=== PATIENT | female | born 1950 | race American Indian/Alaskan Native ===

== ENCOUNTER 2017-04-22 09:20 | Emergency (ER) | payer BC ==
[~2017-04-22] VITALS: Ht 162.6 cm; Wt 87.1 kg
[~2017-04-22 09:20] MED LIST: ASPI325; Ativan0.5 MG PO; Ciprodex Otic7.5 ML LEFTEAR; INSULANPEN; LEVSOD100 PO; LISI20 PO; MECL25 PO; MELA3 PO; METF500; METF500 PO; NAPR500 PO; OXYACE7.5T PO; OXYC10ER PO; PRAV20 PO; ZOLP10; ZOLP10 PO; [UNRECOGNIZED DRUG - OTHER] OP
[2017-04-22 10:37] LABS: Alanine Aminotransfer (ALT/SGP 19 U/L (12-78); Albumin, Blood 3.5 g/dL (3.4-5.0); Albumin/Globulin Ratio 0.7 (0.8-1.8); Alk Phos 65 U/L (50-136); Anion Gap 11 mmol/L (6-16); Aspartate Aminotrans (AST/SGOT 22 U/L (12-37); Bilirubin, Total 0.6 mg/dL (0.1-1.0); Blood Urea Nitrogen 12 mg/dL (8-24); Bun/Creatinine Ratio 17.9 (12.0-20.0); CO2, Blood 23 mmol/L (21-32); Calcium, Blood 9.1 mg/dL (8.5-10.1); Chloride, Blood 107 mmol/L (98-108); Creatinine, Blood 0.67 mg/dL (0.40-1.00); Globulin, Blood 4.9 g/dL (2.2-4.0); Glomerular Filtration Rate >60 (60-); Glucose, Blood 121 mg/dL (70-99); Potassium, Blood 4.3 mmol/L (3.5-5.5); Sodium, Blood 141 mmol/L (136-145); Total Protein, Blood 8.4 g/dL (6.4-8.2)
[2017-04-22 11:44] LABS: BASOPHILS ABSOLUTE AUTO 0.04 K/mm3 (0.00-0.23); BASOPHILS PERCENT AUTO 1 % (0-2); EOSINOPHILS ABSOLUTE AUTO 0.26 K/mm3 (0.00-0.68); EOSINOPHILS PERCENT AUTO 3 % (0-6); Hematocrit 41.7 % (33.0-51.0); Hemoglobin 13.4 g/dL (11.5-16.0); IMMATURE GRAN ABSOLUTE AUTO 0.02 K/mm3 (0.00-0.10); IMMATURE GRAN PERCENT AUTO 0 % (0-1); LYMPHOCYTES ABSOLUTE AUTO 1.48 K/mm3 (0.84-5.20); LYMPHOCYTES PERCENT AUTO 18 % (21-46); MONOCYTES ABSOLUTE AUTO 0.54 K/mm3 (0.16-1.47); MONOCYTES PERCENT AUTO 7 % (4-13); Mean Corpuscular HGB 30.2 pg (26.0-34.0); Mean Corpuscular HGB Conc 32.1 g/dL (31.5-36.5); Mean Corpuscular Volume 94 fL (80-100); NEUTROPHILS ABSOLUTE AUTO 5.92 K/mm3 (1.96-9.15); NEUTROPHILS PERCENT AUTO 72 % (41-73); Platelet Count 201 K/mm3 (150-400); RDW Coefficient Variation 13.4 % (11.7-14.2); RDW Standard Deviation 46.2 fL (35.1-46.3); Red Blood Cell Count 4.44 M/mm3 (3.80-5.20); White Blood Cell Count 8.26 K/mm3 (4.00-11.30)
[2017-04-22] MEDS ORDERED: OMEPRAZOLE MAGN20 MG PO (12:00)
== END 2017-04-22 12:14 | disposition home or self-care (01) ==
LOC: ER 09:20
PROVIDERS: Physician Assistant
DX: R10.9 Unspecified abdominal pain (principal); R10.816 Epigastric abdominal tenderness; E11.9 Type 2 diabetes mellitus without complications; I10 Essential (primary) hypertension; E03.9 Hypothyroidism, unspecified; I25.2 Old myocardial infarction; I70.90 Unspecified atherosclerosis; F17.200 Nicotine dependence, unspecified, uncomplicated; Z79.4 Long term (current) use of insulin; Z79.891 Long term (current) use of opiate analgesic; Z79.899 Other long term (current) drug therapy; Z79.2 Long term (current) use of antibiotics
CPT/HCPCS: 36415; 80053; 83690; 85025; 93005; 93010; 96361; 96374; 99283; J3490; J7030

== ENCOUNTER 2017-07-14 06:39 | Day surgery (SDC) | payer BC ==
[~2017-07-14] VITALS: Ht 162.6 cm; Wt 80.5 kg
[~2017-07-14 06:39] MED LIST changes: +OMEPRAZOLE MAGN20 MG PO
== END 2017-07-14 09:05 | disposition home or self-care (01) ==
LOC: ORSCSDS 06:39
PROVIDERS: Internal Medicine Gastroenterology
PROC: 0DBH8ZX Excision of Cecum, Via Natural or Artificial Opening Endoscopic, Diagnostic (ICD-10-PCS; principal; 2017-07-14 08:00)
PROC: 0DB88ZX Excision of Small Intestine, Via Natural or Artificial Opening Endoscopic, Diagnostic (ICD-10-PCS; principal; 2017-07-14 08:00)
PROC: 0DB58ZX Excision of Esophagus, Via Natural or Artificial Opening Endoscopic, Diagnostic (ICD-10-PCS; principal; 2017-07-14 08:00)
PROC: 0DB68ZX Excision of Stomach, Via Natural or Artificial Opening Endoscopic, Diagnostic (ICD-10-PCS; principal; 2017-07-14 08:00)
DX: R10.9 Unspecified abdominal pain (principal); D12.0 Benign neoplasm of cecum; R10.13 Epigastric pain; K64.8 Other hemorrhoids; K59.00 Constipation, unspecified; E11.9 Type 2 diabetes mellitus without complications; I10 Essential (primary) hypertension; K21.9 Gastro-esophageal reflux disease without esophagitis; K29.70 Gastritis, unspecified, without bleeding; R63.4 Abnormal weight loss; E78.5 Hyperlipidemia, unspecified; Z87.891 Personal history of nicotine dependence; E66.9 Obesity, unspecified; Z68.32 Body mass index [BMI] 32.0-32.9, adult; Z79.82 Long term (current) use of aspirin; Z79.84 Long term (current) use of oral hypoglycemic drugs; Z79.899 Other long term (current) drug therapy
CPT/HCPCS: 82947; 88305; 88342; J0330; J1980; J2405; J7120

== ENCOUNTER 2021-12-15 07:16 | Day surgery (SDC) | payer BC ==
[~2021-12-15] VITALS: Ht 160 cm; Wt 71.8 kg
[~2021-12-15 07:16] MED LIST changes: +ASPI81CH PO; +HYDPAM25 PO; +HYDR1TAB94 PO; +OMEP20ER PO
--- NOTE | 2021-12-15 08:34 | NUR ---
Ambulatory in Day Surgery History, Chart, Medications and Allergies reviewed before start of procedure. Lungs clear T/O to Auscultation. Pre-Op teaching done. Pt verbalizes understanding. Patient States Post-Procedure ride home has been arranged.
--- NOTE | 2021-12-15 09:03 | NUR ---
PATIENTS BLOOD SUGAR ON ADMIT IN SDS 62. INFORMED DR SCOTT ANESTHESIOLOGIST. NEW ORDERS TO GIVEN D5NS 250CC BOLUS THEN RECHECK CBG; IVF'S STARTED.
--- NOTE | 2021-12-15 09:33 | NUR ---
RECHECKED BLOOD SUGAR AFTER 500CC D5NS BOLUS PER ORDERS. CBG [address] SCOTT AND OR STAFF.
--- NOTE | 2021-12-15 10:38 | NUR ---
12/15/21 1038 Edwar Castrejon PTS BLOOD SUGAR CHECKED IN OR AT 1020, CBG WAS 104.
--- NOTE | 2021-12-15 12:34 | NUR ---
Discharge instructions reviewed with patient. Patient verbalizes understanding. Copy given to patient to take home. Dressing to procedure site clean, dry, intact with no visible drainage, swelling, erythema or bruising noted.
--- NOTE | 2021-12-15 12:49 | NUR ---
Discharged via wheelchair to private car for ride home.
[2021-12-16] MEDS ORDERED: TRESIBA100 UNIT/2 SC (09:10)
== END 2021-12-15 12:51 | disposition home or self-care (01) ==
LOC: ORSCMMR 07:16 → ORD 09:00 → ORSCMMR 12:51
PROVIDERS: Surgery
PROC: BF532Z0 Other Imaging of Gallbladder and Bile Ducts using Fluorescing Agent, Intraoperative (ICD-10-PCS; principal; 2021-12-15 09:00)
PROC: 0FT44ZZ Resection of Gallbladder, Percutaneous Endoscopic Approach (ICD-10-PCS; principal; 2021-12-15 09:00)
DX: K80.12 Calculus of gallbladder with acute and chronic cholecystitis without obstruction (principal); I10 Essential (primary) hypertension; I25.10 Atherosclerotic heart disease of native coronary artery without angina pectoris; I25.2 Old myocardial infarction; E11.9 Type 2 diabetes mellitus without complications; E03.9 Hypothyroidism, unspecified; Z79.4 Long term (current) use of insulin; Z79.899 Other long term (current) drug therapy
CPT/HCPCS: 74300; 82947; 88304; A9270; C1894; J0694; J1100; J2250; J2370; J2405; J2704; J2795; J3010; J7042; J7120

== ENCOUNTER 2021-12-16 03:56 | Inpatient (IN) | payer BC ==
[~2021-12-16] VITALS: Ht 160 cm; Wt 71.9 kg
[2021-12-16 04:50] LABS: Calcium, Ionized (POC) 1.25 mmol/L (1.10-1.46); Chloride (POC) 104 mmol/L (98-108); Creatinine (POC) 0.6 mg/dL (0.6-1.0); Glucose (ISTAT POC) 258 mg/dL (70-99); Hemoglobin (POC) 15.3 g/dL (12.0-16.0); Potassium (POC) 4.1 mmol/L (3.5-5.5); Sodium (POC) 142 mmol/L (135-148); Total CO2 (POC) 25 mmol/L (21-32)
[2021-12-16 04:55] LABS: Alanine Aminotransfer (ALT/SGP 48 U/L (12-78); Albumin, Blood 3.9 g/dL (3.4-5.0); Albumin/Globulin Ratio 0.7 (0.8-1.8); Alk Phos 79 U/L (50-136); Anion Gap 7 mmol/L (6-16); Aspartate Aminotrans (AST/SGOT 63 U/L (12-37); Blood Urea Nitrogen 13 mg/dL (8-24); Bun/Creatinine Ratio 18.8 (12.0-20.0); CO2, Blood 26 mmol/L (21-32); Calcium, Blood 9.7 mg/dL (8.5-10.1); Chloride, Blood 105 mmol/L (98-108); Creatinine, Blood 0.69 mg/dL (0.40-1.00); Globulin, Blood 5.3 g/dL (2.2-4.0); Glomerular Filtration Rate 92 (60-); Glucose, Blood 255 mg/dL (70-99); Potassium, Blood 4.1 mmol/L (3.5-5.5); Sodium, Blood 138 mmol/L (136-145); Total Protein, Blood 9.2 g/dL (6.4-8.2)
[2021-12-16 04:57] LABS: BASOPHILS ABSOLUTE AUTO 0.06 K/mm3 (0.00-0.23); BASOPHILS PERCENT AUTO 0 % (0-2); EOSINOPHILS ABSOLUTE AUTO 0.03 K/mm3 (0.00-0.68); EOSINOPHILS PERCENT AUTO 0 % (0-6); Hematocrit 46.8 % (33.0-51.0); Hemoglobin 15.4 g/dL (11.5-16.0); IMMATURE GRAN PERCENT AUTO 1 % (0-1); LYMPHOCYTES ABSOLUTE AUTO 2.06 K/mm3 (0.84-5.20); LYMPHOCYTES PERCENT AUTO 9 % (21-46); MONOCYTES ABSOLUTE AUTO 1.18 K/mm3 (0.16-1.47); MONOCYTES PERCENT AUTO 5 % (4-13); Mean Corpuscular HGB 30.6 pg (26.0-34.0); Mean Corpuscular HGB Conc 32.9 g/dL (31.5-36.5); Mean Corpuscular Volume 93 fL (80-100); Mean Platelet Volume 11.8 fL (9.1-12.4); NEUTROPHILS ABSOLUTE AUTO 18.66 K/mm3 (1.96-9.15); NEUTROPHILS PERCENT AUTO 84 % (41-73); Platelet Count 196 K/mm3 (150-400); RDW Coefficient Variation 13.2 % (11.7-14.2); Red Blood Cell Count 5.03 M/mm3 (3.80-5.20); White Blood Cell Count 22.19 K/mm3 (4.00-11.30)
[2021-12-16 05:21] LABS: International Normalized Ratio 1.05
[2021-12-16 05:30] LABS: Influenza A, PCR NEGATIVE (NEGATIVE); Influenza B, PCR NEGATIVE (NEGATIVE); Resp Syncytial Virus, PCR NEGATIVE (NEGATIVE); SARS-Cov-2 (COVID-19) PCR, MMC NEGATIVE (NEGATIVE)
[2021-12-16 05:39] LABS: CHOL/HDL RATIO 2.3; Cholesterol 159 mg/dL (50-200); HDL Cholesterol 68 mg/dL (>39); LDL/HDL RATIO 1.2; Low Density Lipoprotein Chol 78 mg/dL (0-110); Magnesium, Blood 1.7 mg/dL (1.6-2.4); Triglycerides 63 mg/dL (30-160); Very Low Density Lipoprot Chol 12 mg/dL (6-32)
--- NOTE | 2021-12-16 06:59 | NUR ---
NEW ADMISSION: PT ARRIVED TO THE UNIT AT 0636 FROM CONTAINER PACKER OPERATOR WITH ONE STENT PLACEMENT IN THE PROXIMAL CIRCUMFLEX ART. R. RADIAL SITE LOOKS GOOD WITH NO SIGNS OF BLLEDING PRESENT, WRIST BOARD IN PLACE. PT HYPERSENSIVE WITH SBP IN THE 150'S UPON ARRIVAL; RECIEVED 5 MGS METOPROLOL IN CONTAINER PACKER OPERATOR PRIOR TO TRANSFER. HR IN THE 90'S. CLEAR LUNG SOUNDS THROUGHOUT AND ON RA. PT'S DAUGHTER AND SON AT BEDSIDE AFTER SETTLING PT. GAVE BEDSIDE REPORT TO HEAVENLY DAVIS.
[2021-12-16] MEDS ORDERED: TRESIBA100 UNIT/2 SC (09:10)
--- NOTE | 2021-12-16 10:01 | NUR ---
ASSUMED CARE REPORT FROM SUNDEEP/CHRISTIAN RN AT 0700. PT ARRIVES TO ICU AT 0635 POST PCI. RIGHT RADIAL ACCESS SITE. TR BAND DEFLATED BUT IN PLACE AT THIS TIME. NO BLEEDING, SWELLING NOTED. DENIES NUMBNESS OR TINGLING. CAP REFILL <3 SEC. ARM BOARD IN PLACE. PT DENIES CHEST PAIN OR SOB. SR, RATE 70'S ON MONITOR. BP STABLE. STAND BY ASSIST TO TOLIET. TOLERATED BREAKFAST WELL. PT S/P OUTPT LAP RAOUL YEST, THREE GAUZE DRESSINGS c TEGADERM IN PLACE, NO DRAINAGE NOTED. PT DENIES PAIN TO SITE. TOLD BY SX THAT SHE CAN REMOVE THIS AFTERNOON. WILL CONTINUE TO MONITOR.
--- NOTE | 2021-12-16 17:20 | NUR ---
SHIFT SUMMARY NO ACUTE EVENTS THIS SHIFT. PT DENIES CHEST PAIN OR SOB. STANDBY ASSIST FOR CORD MANAGMENT. RIGHT RADIAL ACCESS SITE WNL. OPSITE AND ARMBOARD IN PLACE. SR c OCCASIONAL PVCS ON MONITOR. BP STABLE. DR CALLEJAS ROUNDED, REMOVED RAOUL DRESSINGS. WILL CONTINUE TO MONITOR UNTIL REPORT TO ONCOMING NURSE.
--- NOTE | 2021-12-16 20:46 | NUR ---
ASSUMPTION OF CARE: ASSUMED CARE OF PT AT 1900, RECIEVED REPORT FROM HEAVENLY DAVIS. PT IS A&O X 4 AND SITTING IN A CHAIR AT THIS TIME. PT IS PLEASANT AND ABLE TO COMPLETE ADLS WITH LIMITED STAND-BY ASSISTANCE FROM ONE PERSON TO MAINTAIN CORDS. PT HAS NO C/O OF CHEST PAIN OR SOB AT THIS TIME. PT IS ON RA WITH 02 LEVELS MAINTAINING 98<, WITH RR 18-20; LUNG SOUNDS ARE CLEAR THROUGHOUT. PT ON CONTINUOUS WAISTBAND SETTER WITH HR IN THE 70'S AND SBP 150'S. HYPERACTIVE BS IN ALL FOUR QUADRANTS, ABD TENDER NEAR INCISION SITES; OTHER THAN THAT PT HAS NO C/O OF ABD PAIN. PPP X 4, ALL EXTREMITIES WARM AND CAP REFIL < 3 SECONDS. R. RADIAL SITE LOOKS WELL WITH NO SWELLING OR TENDERNESS PRESENT; ABSENT OF BLEEDING WITH ARMBOARD IN PLACE. PLACED R. ARM ON PILLOW AND PT UNDERSTANDS NOT TO BEND OR BARE WEIGHT ON R. WRIST. PT HAS TWO IV RIGHT/LEFT AC THAT ARE SALINE LOCKED. PT RECIEVED PRN DOSE OF MELITONIN UPON REQUEST. CALL LIGHT IN REACH AND BED LOWERED. WILL CONTINUE TO MONITOR THROUGHOUT THE NIGHT.
[2021-12-17 03:16] LABS: Hematocrit 42.9 % (33.0-51.0); Hemoglobin 13.9 g/dL (11.5-16.0); Mean Corpuscular HGB 30.3 pg (26.0-34.0); Mean Corpuscular HGB Conc 32.4 g/dL (31.5-36.5); Mean Corpuscular Volume 94 fL (80-100); Mean Platelet Volume 11.3 fL (9.1-12.4); Platelet Count 232 K/mm3 (150-400); RDW Coefficient Variation 13.4 % (11.7-14.2); RDW Standard Deviation 45.5 fL (35.1-46.3); Red Blood Cell Count 4.59 M/mm3 (3.80-5.20); White Blood Cell Count 19.87 K/mm3 (4.00-11.30)
[2021-12-17 03:33] LABS: Bun/Creatinine Ratio 26.3 (12.0-20.0); Calcium, Blood 9.4 mg/dL (8.5-10.1); Creatinine, Blood 0.72 mg/dL (0.40-1.00); Potassium, Blood 3.7 mmol/L (3.5-5.5)
--- NOTE | 2021-12-17 05:50 | NUR ---
SHIFT SUMMARY: NO ACUTE CHANGES THIS SHIFT. THE PT WAS ABLE TO SLEEP COMFORTABLY THROUGH THE NIGHT. DURING 0500 EKG, PT HAD C/O OF ABD PAIN TRIGGERED BY MOVEMENT IN THE BED. PT STATED IT WAS A 3-4/10 AND WAS MEDICATED WITH NORCO PER EMAR. PT'S DAUGHTER IN THE VISIT AT 0530 AND UPDATED ON PT'S STATUS, ALL QUESTIONS ANSWERED AT THIS TIME. PT BP STABLE THROUGHOUT THE SHIFT WITH NO C/O CHEST PAIN. R. RADIAL ACCESS SITE CONTINUE TO LOOK GOOD WITH NO SWELLING OR BLEEDING PRESENT; CAP REFIL REMAINS < 3 SECONDS AND PPP X 4. WILL CONTINUE TO MONITOR UNTIL ONCOMING NURSE ARRIVES.
--- NOTE | 2021-12-17 08:15 | NUR ---
ASSUMED CARE REPORT FROM SUNDEEP/CHRISTIAN RN AT 0700. PT RESTING IN BED. WAKES c VERBAL STIMULI. A&OX 4. FOLLOWS DIRECTIONS. DENIES COMPLAINTS OR NEEDS. LUNGS CLEAR. VSS. SR ON MONITOR, RATE 80'S. BP STABLE. RIGHT RADIAL ACCESS SITE WNL. DR PHILLIP GARCIA, PLAN FOR D/C THIS SHIFT. WILL CONTINUE TO MONITOR.
[2021-12-17] MEDS ORDERED: ATOR80 PO (08:34)
[2021-12-17] MEDS ORDERED: LISI20 PO (08:34)
[2021-12-17] MEDS ORDERED: JARDIANCE25 MG PO (08:35)
[2021-12-17] MEDS ORDERED: METO25 PO (08:35)
[2021-12-17] MEDS ORDERED: TICA90TA PO (08:36)
[2021-12-17] MEDS ORDERED: NITR.4SL SL (08:36)
--- NOTE | 2021-12-17 11:26 | NUR ---
DISCHARGE NO ACUTE CHANGES. IVS REMOVED BY WARPER TENDER. RIGHT RADIAL SITE WNL. VERBALIZED UNDERSTANDING OF D/C INSTRUCTIONS. APPT MADE c PCP, [facility] TO CALL PT TO SCHEDULE APPT D/T COMPUTERS BEING DOWN. OTD c DAUGHTER.
== END 2021-12-17 11:20 | disposition home or self-care (01) | DRG 247 ==
LOC: ER 03:56 → ICUW 05:02
PROVIDERS: Student in an Organized Health Care Education/Training Program; ADMIT Internal Medicine Cardiovascular Disease
PROC: 4A023N7 Measurement of Cardiac Sampling and Pressure, Left Heart, Percutaneous Approach (ICD-10-PCS; principal; 2021-12-16)
PROC: 027034Z Dilation of Coronary Artery, One Artery with Drug-eluting Intraluminal Device, Percutaneous Approach (ICD-10-PCS; 2021-12-16)
PROC: B2111ZZ Fluoroscopy of Multiple Coronary Arteries using Low Osmolar Contrast (ICD-10-PCS; 2021-12-16)
DX: I21.19 ST elevation (STEMI) myocardial infarction involving other coronary artery of inferior wall (principal); T82.855A Stenosis of coronary artery stent, initial encounter; E11.9 Type 2 diabetes mellitus without complications; E78.5 Hyperlipidemia, unspecified; I10 Essential (primary) hypertension; I49.3 Ventricular premature depolarization; Z88.8 Allergy status to other drugs, medicaments and biological substances; D50.9 Iron deficiency anemia, unspecified; K59.00 Constipation, unspecified; E78.2 Mixed hyperlipidemia; Z20.822 Contact with and (suspected) exposure to COVID-19; E03.9 Hypothyroidism, unspecified; Z95.820 Peripheral vascular angioplasty status with implants and grafts; Z79.82 Long term (current) use of aspirin; Z79.4 Long term (current) use of insulin; Z79.899 Other long term (current) drug therapy; K80.20 Calculus of gallbladder without cholecystitis without obstruction; F17.200 Nicotine dependence, unspecified, uncomplicated; Z90.49 Acquired absence of other specified parts of digestive tract; K21.9 Gastro-esophageal reflux disease without esophagitis; I25.10 Atherosclerotic heart disease of native coronary artery without angina pectoris; D72.828 Other elevated white blood cell count; F41.9 Anxiety disorder, unspecified
CPT/HCPCS: 0241U; 36415; 71045; 76937; 80047; 80048; 80053; 80061; 82947; 83036; 83735; 84484; 85014; 85025; 85027; 85347; 85610; 93005; 93010; 93306; 93454; 96374; 99152; 99153; 99285-25; A9270; C1725; C1769; C1874; C1887; C1894; C9600; C9606; J1644; J1815; J2250; J3010; J7030; J7040; J7050; Q9967

== ENCOUNTER 2021-12-31 10:33 | Emergency (ER) | payer MEDICARE, BC ==
[~2021-12-31] VITALS: Ht 160 cm; Wt 63.5 kg
[~2021-12-31 10:33] MED LIST changes: -ASPI81CH PO; +ASPIR 8181 M1 PO; +ATOR80 PO; -HYDPAM25 PO; -HYDR1TAB94 PO; +JARDIANCE25 MG PO; +LEVSOD75 PO; +METO25 PO; +TICA90TA PO; +TRESIBA100 UNIT/2 SC
[2021-12-31 11:39] LABS: BASOPHILS ABSOLUTE AUTO 0.11 K/mm3 (0.00-0.23); BASOPHILS PERCENT AUTO 1 % (0-2); EOSINOPHILS PERCENT AUTO 1 % (0-6); Hematocrit 47.1 % (33.0-51.0); Hemoglobin 15.5 g/dL (11.5-16.0); IMMATURE GRAN PERCENT AUTO 1 % (0-1); LYMPHOCYTES ABSOLUTE AUTO 1.97 K/mm3 (0.84-5.20); LYMPHOCYTES PERCENT AUTO 10 % (21-46); MONOCYTES PERCENT AUTO 7 % (4-13); Mean Corpuscular HGB 30.6 pg (26.0-34.0); Mean Corpuscular HGB Conc 32.9 g/dL (31.5-36.5); Mean Corpuscular Volume 93 fL (80-100); Mean Platelet Volume 11.6 fL (9.1-12.4); NEUTROPHILS ABSOLUTE AUTO 15.41 K/mm3 (1.96-9.15); NEUTROPHILS PERCENT AUTO 81 % (41-73); Platelet Count 310 K/mm3 (150-400); RDW Coefficient Variation 12.9 % (11.7-14.2); RDW Standard Deviation 43.5 fL (35.1-46.3); Red Blood Cell Count 5.07 M/mm3 (3.80-5.20); White Blood Cell Count 18.99 K/mm3 (4.00-11.30)
[2021-12-31 12:06] LABS: Albumin, Blood 3.2 g/dL (3.4-5.0); Albumin/Globulin Ratio 0.6 (0.8-1.8); Bilirubin, Total 1.3 mg/dL (0.1-1.0); Creatinine, Blood 0.63 mg/dL (0.40-1.00); Globulin, Blood 5.2 g/dL (2.2-4.0); Potassium, Blood 4.6 mmol/L (3.5-5.5); Total Protein, Blood 8.4 g/dL (6.4-8.2)
[2021-12-31] MEDS ORDERED: Protonix40 MG PO (16:09)
== END 2021-12-31 16:28 | disposition home or self-care (01) ==
LOC: ER 10:33
PROVIDERS: Physician Assistant
DX: K29.70 Gastritis, unspecified, without bleeding (principal); I10 Essential (primary) hypertension; E11.9 Type 2 diabetes mellitus without complications; E03.9 Hypothyroidism, unspecified; I25.10 Atherosclerotic heart disease of native coronary artery without angina pectoris; I25.2 Old myocardial infarction; Z88.8 Allergy status to other drugs, medicaments and biological substances; Z79.899 Other long term (current) drug therapy; Z79.4 Long term (current) use of insulin; Z79.82 Long term (current) use of aspirin
CPT/HCPCS: 80053; 82947; 83605; 83690; 84484; 85025; 96374; 99284-25; A9270; C9113; J7030

== ENCOUNTER 2022-01-05 10:44 | Inpatient (IN) | payer BC ==
[~2022-01-05] VITALS: Ht 162.6 cm; Wt 65.5 kg
[~2022-01-05 10:44] MED LIST changes: +Protonix40 MG PO
[2022-01-05 11:03] LABS: Source, Urine Clean Catch
[2022-01-05 11:05] LABS: Appearance, Urine Clear (Clear); Blood, Urine Neg (Neg); Color, Urine Yellow (P-Yellow); Glucose Qualitative, Urine Neg (Neg); Ketones, Urine 1+ (Neg); Leukocyte Esterase, Urine 1+ (Neg); Nitrite, Urine Neg (Neg); Protein, Urine 2+ (Neg); Urobilinogen, Urine 1+ (Normal); pH, Urine 6.5 (5.0-8.0)
[2022-01-05 11:18] LABS: BASOPHILS PERCENT AUTO 1 % (0-2); EOSINOPHILS ABSOLUTE AUTO 0.21 K/mm3 (0.00-0.68); EOSINOPHILS PERCENT AUTO 1 % (0-6); Hematocrit 42.5 % (33.0-51.0); Hemoglobin 14.2 g/dL (11.5-16.0); IMMATURE GRAN ABSOLUTE AUTO 0.08 K/mm3 (0.00-0.10); IMMATURE GRAN PERCENT AUTO 0 % (0-1); LYMPHOCYTES ABSOLUTE AUTO 1.53 K/mm3 (0.84-5.20); LYMPHOCYTES PERCENT AUTO 8 % (21-46); MONOCYTES ABSOLUTE AUTO 1.65 K/mm3 (0.16-1.47); MONOCYTES PERCENT AUTO 8 % (4-13); Mean Corpuscular HGB 30.5 pg (26.0-34.0); Mean Corpuscular HGB Conc 33.4 g/dL (31.5-36.5); Mean Corpuscular Volume 91 fL (80-100); Mean Platelet Volume 10.9 fL (9.1-12.4); NEUTROPHILS ABSOLUTE AUTO 16.28 K/mm3 (1.96-9.15); NEUTROPHILS PERCENT AUTO 82 % (41-73); Platelet Count 351 K/mm3 (150-400); RDW Coefficient Variation 12.8 % (11.7-14.2); RDW Standard Deviation 43.1 fL (35.1-46.3); Red Blood Cell Count 4.65 M/mm3 (3.80-5.20); White Blood Cell Count 19.85 K/mm3 (4.00-11.30)
[2022-01-05 11:22] LABS: Bilirubin, Urine 1+ (Neg)
[2022-01-05 11:23] LABS: Bacteria Few /hpf; Red Blood Cells, Urine 0-2 /hpf (0-2); Squamous Epithelial Cells Few /hpf (Few); Transitional Epithelial Cells Few /hpf (0-Rare)
[2022-01-05] MEDS ORDERED: TRESIBA FL200 UNIT/2 SQ (11:24)
[2022-01-05 11:38] LABS: Albumin, Blood 2.8 g/dL (3.4-5.0); Albumin/Globulin Ratio 0.5 (0.8-1.8); Bilirubin, Total 1.3 mg/dL (0.1-1.0); Bun/Creatinine Ratio 15.3 (12.0-20.0); Calcium, Blood 9.7 mg/dL (8.5-10.1); Creatinine, Blood 0.59 mg/dL (0.40-1.00); Globulin, Blood 5.3 g/dL (2.2-4.0); Potassium, Blood 3.8 mmol/L (3.5-5.5); Total Protein, Blood 8.1 g/dL (6.4-8.2)
[2022-01-05] MEDS ORDERED: LISI20 PO (15:18)
--- NOTE | 2022-01-05 17:02 | NUR ---
SHIFT SUMMARY MS CASTRO ARRIVED TO MEDICAL UNIT FROM ER AT 1505 HRS. SHE IS ON ROOM AIR, WAS ABLE TO TRANSFERE INDEPENDENTLY AND WALKED INTO THE BATHROOM WITH STEADY GAIT, NO DIZZYNESS/LIGHTHEADEDNESS. NO SOB. NO CP. SHE WAS ADMITTED WITH ABDOMINAL PAIN, BUT HAS NOT HAD ANY ABDOMINAL PAIN SINCE ARRIVAL. ABDOMEN SOFT, BOWEL SOUNDS ACTIVE. NO BM X 5 DAYS. PT C/O RECENT WEIGHT LOSS AROUND 14LBS DUE TO NAUSEA. NO NAUSEA ON ARRIVAL OR SINCE. IVF INFUSING NS AT 100CC/HR. SIPPING ON SOME WATER. DAUGHTER HAS VISITED WITH HER. PT LIVES WITH HER DAUGHTER AND SAID SHE IS INDEPENDENT AT HOME. SHE SAID THAT SHE IS TAKING HALF OF HER HOME LISINOPRIL DOSE DUE TO SBP [address] DEMPSEY INFORMED AND LISINOPRIL DOSE CHANGED TO 20MG PO QD. BED LOW, CALL LIGHT IN REACH.
[2022-01-05] MEDS ORDERED: HYDR1TAB94 PO (18:07)
[2022-01-05] MEDS ORDERED: HYDPAM25 PO (18:08)
[2022-01-05] MEDS ORDERED: NITR.4SL SL (18:08)
--- NOTE | 2022-01-06 04:51 | NUR ---
SHIFT SUMMARY PT A&OX 4- PT DENIED PAIN T/O NIGHT- IV FLUIDS AND ABX INFUSED T/O NIGHT- PT ABLE TO EAT SNACK WITH MILD NAUSEA- MEDICATED X1 WITH ZOFRAN- PT AMBULATES IND TO BR
[2022-01-06 05:52] LABS: BASOPHILS ABSOLUTE AUTO 0.08 K/mm3 (0.00-0.23); BASOPHILS PERCENT AUTO 1 % (0-2); EOSINOPHILS PERCENT AUTO 2 % (0-6); Hematocrit 37.4 % (33.0-51.0); Hemoglobin 12.5 g/dL (11.5-16.0); IMMATURE GRAN ABSOLUTE AUTO 0.08 K/mm3 (0.00-0.10); IMMATURE GRAN PERCENT AUTO 1 % (0-1); LYMPHOCYTES ABSOLUTE AUTO 1.85 K/mm3 (0.84-5.20); LYMPHOCYTES PERCENT AUTO 11 % (21-46); MONOCYTES ABSOLUTE AUTO 1.86 K/mm3 (0.16-1.47); MONOCYTES PERCENT AUTO 11 % (4-13); Mean Corpuscular HGB 30.6 pg (26.0-34.0); Mean Corpuscular HGB Conc 33.4 g/dL (31.5-36.5); Mean Corpuscular Volume 91 fL (80-100); NEUTROPHILS ABSOLUTE AUTO 12.97 K/mm3 (1.96-9.15); NEUTROPHILS PERCENT AUTO 75 % (41-73); Platelet Count 279 K/mm3 (150-400); RDW Coefficient Variation 12.7 % (11.7-14.2); RDW Standard Deviation 42.5 fL (35.1-46.3); Red Blood Cell Count 4.09 M/mm3 (3.80-5.20); White Blood Cell Count 17.24 K/mm3 (4.00-11.30)
[2022-01-06 06:22] LABS: Bun/Creatinine Ratio 13.8 (12.0-20.0); Creatinine, Blood 0.58 mg/dL (0.40-1.00); Potassium, Blood 3.6 mmol/L (3.5-5.5)
[2022-01-06 08:39] LABS: Bilirubin, Direct 0.3 mg/dL (0.0-0.3); Bilirubin, Indirect 0.8 mg/dL (0.1-0.7); Bilirubin, Total 1.1 mg/dL (0.1-1.0)
--- NOTE | 2022-01-06 17:26 | NUR ---
SHIFT SUMMARY PATIENT MEDICATED FOR PAIN X3, NAUSEA X1, PATIENT DENIES SHORTNESS OF BREATH. PATIENT IS IND IN ROOM. PATIENT HAS NS RUNNING AT 100MLS/HR. PATIENT SBP LOW, NOTIFIED, BP MEDS ADJUSTED. NEW ORDERS FOR ORTHOSTATIC VS, COMPLETED AND DR. GALVEZ NOTIFIED. PATIENT DENIES CHEST PAIN, DIZZINESS, AND LIGHTHEADEDNESS WITH LOW SBP. PATIENT HAD HIDA SCAN TODAY, SEE RESULTS. PATIENT HAD MINIMAL PO INTAKE, MAKES HER NAUSEOUS. DR. NEVILLE TO SEE PATIENT TODAY, SEE NOTE. PATIENT IS PLEASANT AND COOPERATIVE WITH CARE.
--- NOTE | 2022-01-06 17:58 | NUR ---
FINANCIAL RECORDING CLERK DOCUMENTATION THIS RN AGREES WITH THE STUDENT SHIFT ASSESSMENT AND WAS PRESENT DURING ASSESSMENT. THIS RN ANSWERED ANY QUESTIONS STUDENT HAD. THIS RN HELPED STUDENT CHART THE SHIFT ASSESSMENT AND AGREES WITH WHAT IS CHARTED.
[2022-01-07 05:10] LABS: BASOPHILS ABSOLUTE AUTO 0.07 K/mm3 (0.00-0.23); BASOPHILS PERCENT AUTO 1 % (0-2); EOSINOPHILS ABSOLUTE AUTO 0.54 K/mm3 (0.00-0.68); EOSINOPHILS PERCENT AUTO 4 % (0-6); Hematocrit 36.1 % (33.0-51.0); Hemoglobin 12.2 g/dL (11.5-16.0); IMMATURE GRAN ABSOLUTE AUTO 0.06 K/mm3 (0.00-0.10); IMMATURE GRAN PERCENT AUTO 0 % (0-1); LYMPHOCYTES PERCENT AUTO 15 % (21-46); MONOCYTES PERCENT AUTO 10 % (4-13); Mean Corpuscular HGB 30.8 pg (26.0-34.0); Mean Corpuscular HGB Conc 33.8 g/dL (31.5-36.5); Mean Corpuscular Volume 91 fL (80-100); Mean Platelet Volume 10.9 fL (9.1-12.4); NEUTROPHILS ABSOLUTE AUTO 9.77 K/mm3 (1.96-9.15); NEUTROPHILS PERCENT AUTO 70 % (41-73); Platelet Count 291 K/mm3 (150-400); RDW Coefficient Variation 12.6 % (11.7-14.2); RDW Standard Deviation 42.1 fL (35.1-46.3); Red Blood Cell Count 3.96 M/mm3 (3.80-5.20); White Blood Cell Count 13.94 K/mm3 (4.00-11.30)
[2022-01-07 05:31] LABS: Albumin, Blood 2.2 g/dL (3.4-5.0); Albumin/Globulin Ratio 0.5 (0.8-1.8); Calcium, Blood 8.9 mg/dL (8.5-10.1); Creatinine, Blood 0.54 mg/dL (0.40-1.00); Globulin, Blood 4.4 g/dL (2.2-4.0); Potassium, Blood 3.2 mmol/L (3.5-5.5); Total Protein, Blood 6.6 g/dL (6.4-8.2)
--- NOTE | 2022-01-07 06:28 | NUR ---
SHIFT SUMMARY MEDICATED PT WITH PAIN MEDICATION ONCE THROUGHOUT THE NIGHT- NEW ORDER FOR MELATONIN GIVEN - PT SLEPT T/O NIGHT- IV INFUSING WITHOUT PROBLEMS
[2022-01-07] MEDS ORDERED: Acetaminophen650 M1 PO (11:37)
[2022-01-07] MEDS ORDERED: AMOCLA875 PO (11:38)
[2022-01-07] MEDS ORDERED: VISBIOME 112.51 EACH PO (11:38)
--- NOTE | 2022-01-07 14:24 | NUR ---
DISCHARGE PATIENT TRANSPORTED VIA WHEELCHAIR TO PRIVATE VEHCILE. DISCHARGE INSTRUCTIONS EXPLAINED TO PATIENT. PATIENT STATED UNDERSTANDING. PACKET SENT WITH PATIENT. BELONGINGS SENT WITH PATIENT. IV REMOVED WITHOUT DIFFICULTY. PATIENT TO SCHEDULE FOLLOW UP APPOINTMENTS. MEDICATIONS CALLED INTO [facility] DUE TO THEIR FAX MACHINE BEING DOWN. CONFIRMATION OF VERBAL ORDERS GIVEN. EDUCATION ABOUT NEW MEDICATIONS AND CHANGE IN MEDICATIONS DONE WITH PATIENT.
== END 2022-01-07 14:27 | disposition home or self-care (01) | DRG 920 ==
LOC: ER 10:44 → MEDS 13:48
PROVIDERS: Emergency Medicine; Internal Medicine; Nurse Practitioner Acute Care; Surgery; ADMIT Hospitalist
DX: K91.872 Postprocedural seroma of a digestive system organ or structure following a digestive system procedure (principal); R65.10 Systemic inflammatory response syndrome (SIRS) of non-infectious origin without acute organ dysfunction; I10 Essential (primary) hypertension; E03.9 Hypothyroidism, unspecified; E78.5 Hyperlipidemia, unspecified; K29.70 Gastritis, unspecified, without bleeding; I25.10 Atherosclerotic heart disease of native coronary artery without angina pectoris; K21.9 Gastro-esophageal reflux disease without esophagitis; I25.2 Old myocardial infarction; Z90.49 Acquired absence of other specified parts of digestive tract; Z95.5 Presence of coronary angioplasty implant and graft; Z87.891 Personal history of nicotine dependence; Z88.8 Allergy status to other drugs, medicaments and biological substances; Z79.4 Long term (current) use of insulin; Z79.82 Long term (current) use of aspirin; Z79.899 Other long term (current) drug therapy; Y83.6 Removal of other organ (partial) (total) as the cause of abnormal reaction of the patient, or of later complication, without mention of misadventure at the time of the procedure
CPT/HCPCS: 36415; 74177; 78226; 80048; 80053; 81001; 82247; 82248; 82947; 82977; 83605; 83690; 84145; 85025; 87040; 87086; 93005; 93010; 96361; 96365; 97110; 97161; 97165; 99285-25; A9270; A9537; J2405; J2543; J3010; J7030; Q9967

== ENCOUNTER 2022-02-03 16:45 | Emergency (ER) | payer BC ==
[~2022-02-03] VITALS: Ht 162.6 cm; Wt 59.4 kg
[~2022-02-03 16:45] MED LIST changes: +AMOCLA875 PO; +ASPI81CH PO; +Acetaminophen650 M1 PO; +FAMO20 PO; +HYDPAM25 PO; +HYDR1TAB94 PO; +NITR.4SL SL; +ONDA4ODT MM; +PANT40 PO; +TRESIBA FL200 UNIT/2 SQ; +VISBIOME 112.51 EACH PO
[2022-02-03 18:47] LABS: BASOPHILS PERCENT AUTO 1 % (0-2); EOSINOPHILS PERCENT AUTO 0 % (0-6); Hematocrit 48.8 % (33.0-51.0); Hemoglobin 15.8 g/dL (11.5-16.0); IMMATURE GRAN ABSOLUTE AUTO 0.09 K/mm3 (0.00-0.10); IMMATURE GRAN PERCENT AUTO 0 % (0-1); LYMPHOCYTES PERCENT AUTO 8 % (21-46); MONOCYTES ABSOLUTE AUTO 1.77 K/mm3 (0.16-1.47); MONOCYTES PERCENT AUTO 8 % (4-13); Mean Corpuscular HGB 30.3 pg (26.0-34.0); Mean Corpuscular HGB Conc 32.4 g/dL (31.5-36.5); Mean Corpuscular Volume 94 fL (80-100); Mean Platelet Volume 10.8 fL (9.1-12.4); NEUTROPHILS PERCENT AUTO 83 % (41-73); Platelet Count 398 K/mm3 (150-400); RDW Coefficient Variation 13.7 % (11.7-14.2); RDW Standard Deviation 46.8 fL (35.1-46.3); Red Blood Cell Count 5.22 M/mm3 (3.80-5.20); White Blood Cell Count 22.16 K/mm3 (4.00-11.30)
[2022-02-03 19:04] LABS: Albumin, Blood 2.6 g/dL (3.4-5.0); Albumin/Globulin Ratio 0.5 (0.8-1.8); Bilirubin, Total 1.4 mg/dL (0.1-1.0); Bun/Creatinine Ratio 34.2 (12.0-20.0); Calcium, Blood 9.1 mg/dL (8.5-10.1); Creatinine, Blood 0.35 mg/dL (0.40-1.00); Globulin, Blood 5.5 g/dL (2.2-4.0); Potassium, Blood 5.1 mmol/L (3.5-5.5); Total Protein, Blood 8.1 g/dL (6.4-8.2)
[2022-02-03 19:28] LABS: Source, Urine Clean Catch
[2022-02-03 19:35] LABS: Appearance, Urine Hazy (Clear); Blood, Urine 1+ (Neg); Color, Urine Yellow (P-Yellow); Glucose Qualitative, Urine Neg (Neg); Ketones, Urine Neg (Neg); Leukocyte Esterase, Urine 2+ (Neg); Nitrite, Urine Neg (Neg); Protein, Urine 2+ (Neg); Urobilinogen, Urine NORM (Normal)
[2022-02-03 19:41] LABS: Bilirubin, Urine 1+ (Neg)
[2022-02-03 19:42] LABS: Bacteria Many /hpf; Squamous Epithelial Cells Few /hpf (Few)
[2022-02-03 19:43] LABS: Hyaline Casts 0-2 /lpf (0-2); Mucus Mod (0-Heavy)
[2022-02-03] MEDS ORDERED: METR500 PO (23:47)
[2022-02-03] MEDS ORDERED: AMOCLA875 PO (23:47)
== END 2022-02-03 23:48 ==
LOC: ER 16:45
PROVIDERS: Physician Assistant
DX: K52.9 Noninfective gastroenteritis and colitis, unspecified (principal); D72.829 Elevated white blood cell count, unspecified; I10 Essential (primary) hypertension; E11.9 Type 2 diabetes mellitus without complications; E03.9 Hypothyroidism, unspecified; I25.10 Atherosclerotic heart disease of native coronary artery without angina pectoris; I25.2 Old myocardial infarction; Z88.8 Allergy status to other drugs, medicaments and biological substances; Z79.899 Other long term (current) drug therapy; Z79.4 Long term (current) use of insulin; Z79.82 Long term (current) use of aspirin; Z87.891 Personal history of nicotine dependence
CPT/HCPCS: 36415; 74176; 80053; 81001; 83605; 83690; 85025; 87077; 87086; 87186; A9270; J2405; J3010; J7030

== ENCOUNTER 2022-02-07 12:07 | Day surgery (SDC) | payer BC ==
[~2022-02-07] VITALS: Ht 162.6 cm; Wt 58.8 kg
[~2022-02-07 12:07] MED LIST changes: +METR500 PO
[2022-02-07] MEDS ORDERED: OMEP20ER (13:37)
[2022-02-07] MEDS ORDERED: LISI20 (13:37)
[2022-02-07] MEDS ORDERED: MIRALAX17 GM (13:37)
--- NOTE | 2022-02-07 13:55 | NUR ---
02/07/22 1355 Kim Ruvalcaba ATTEMPTS AT IV. FIRST ATTEMPT BY RN IN R AHND INFILTRATED. SECOND ATTEMPT BY RN IN L AC SUCESSFUL
--- NOTE | 2022-02-07 14:38 | NUR ---
02/07/22 1438 KELLEN SHAH PTS IV NEEDED TO BE RETRACTED AND RETAPED;POSITIONAL FOR PATENCY.
--- NOTE | 2022-02-07 15:29 | NUR ---
02/07/22 1529 KELLEN SHAH PT HAD A TOTAL OF 1400 LR FLUIDS
== END 2022-02-07 15:44 | disposition home or self-care (01) ==
LOC: ORSCSDS 12:07
DX: R19.4 Change in bowel habit (principal); R19.7 Diarrhea, unspecified; R10.9 Unspecified abdominal pain; R11.0 Nausea; R10.13 Epigastric pain; K29.70 Gastritis, unspecified, without bleeding; I10 Essential (primary) hypertension; E03.9 Hypothyroidism, unspecified; D50.9 Iron deficiency anemia, unspecified; E78.5 Hyperlipidemia, unspecified; E11.9 Type 2 diabetes mellitus without complications; Z79.899 Other long term (current) drug therapy; Z79.82 Long term (current) use of aspirin; Z79.4 Long term (current) use of insulin
CPT/HCPCS: 82947; A9270; J0330; J0461; J2370; J2405; J2704; J7120; Q9968

== ENCOUNTER 2022-04-13 08:37 | Day surgery (SDC) | payer BC ==
[~2022-04-13] VITALS: Ht 162.6 cm; Wt 58.0 kg
[~2022-04-13 08:37] MED LIST changes: +EUTHYROX88 MCG; -LEVSOD75 PO; +LISI20; +MIRALAX17 GM; +OMEP20ER
[2022-04-13] MEDS ORDERED: OXYC5 (09:32)
--- NOTE | 2022-04-13 15:00 | NUR ---
PT DRESSES SELF WITHOUT DIFF. IV DC'D. CATH INTACT. PRESSURE DSG APPLIED. NO BLEEDING NOTED. VSS. NADN. PT FEMORAL SITE REMAINS CLEAR. NO BLEEDIG OR HEMATOMA NOTED. PT VERBALIZES UNDERSTANDING WRITTEN AND VERBAL INSTRUCTIONS. DENIES QUESTIONS. PT DC TO HOME VIA WC BY FAMILY.
== END 2022-04-13 15:05 | disposition home or self-care (01) ==
LOC: MHTC 08:37
DX: K55.1 Chronic vascular disorders of intestine (principal); I10 Essential (primary) hypertension; E78.5 Hyperlipidemia, unspecified; E11.9 Type 2 diabetes mellitus without complications; I25.10 Atherosclerotic heart disease of native coronary artery without angina pectoris; I25.2 Old myocardial infarction; Z87.891 Personal history of nicotine dependence; Z79.82 Long term (current) use of aspirin; Z79.4 Long term (current) use of insulin; E03.9 Hypothyroidism, unspecified
CPT/HCPCS: 37221; 37236; 37237; 75726; 76937; 82947; 99152; 99153; C1725; C1760; C1769; C1876; C1887; C1894; J1644; J2250; J2997; J3010; J7030; J7050; Q9967

== ENCOUNTER 2023-12-11 05:32 | Inpatient (IN) | payer MEDICARE, BC ==
[~2023-12-11] VITALS: Ht 160 cm; Wt 81.1 kg
[2023-12-11] VITALS (32 sets, daily range): BP systolic 82–153; BP diastolic 66–124
[~2023-12-11 05:32] MED LIST changes: -ATOR80 PO; -EUTHYROX88 MCG; +LIPITOR80 MG PO; +Nitroglycerin/D5W 250 ML IV ONE; +OXYC10TA19 PO
[2023-12-11] MEDS ORDERED: Nitroglycerin/D5W 250 ML IV SCH (05:40)
[2023-12-11 05:43] LABS: BASOPHILS ABSOLUTE AUTO 0.11 K/mm3 (0.00-0.23); BASOPHILS PERCENT AUTO 1 % (0-2); EOSINOPHILS ABSOLUTE AUTO 1.02 K/mm3 (0.00-0.68); EOSINOPHILS PERCENT AUTO 7 % (0-6); Hematocrit 51.6 % (33.0-51.0); Hemoglobin 16.6 g/dL (11.5-16.0); IMMATURE GRAN ABSOLUTE AUTO 0.06 K/mm3 (0.00-0.10); IMMATURE GRAN PERCENT AUTO 0 % (0-1); LYMPHOCYTES ABSOLUTE AUTO 5.17 K/mm3 (0.84-5.20); LYMPHOCYTES PERCENT AUTO 36 % (21-46); MONOCYTES ABSOLUTE AUTO 0.83 K/mm3 (0.16-1.47); MONOCYTES PERCENT AUTO 6 % (4-13); Mean Corpuscular HGB 29.5 pg (26.0-34.0); Mean Corpuscular HGB Conc 32.2 g/dL (31.5-36.5); Mean Corpuscular Volume 92 fL (80-100); Mean Platelet Volume 10.5 fL (9.1-12.4); NEUTROPHILS ABSOLUTE AUTO 7.31 K/mm3 (1.96-9.15); NEUTROPHILS PERCENT AUTO 50 % (41-73); Platelet Count 258 K/mm3 (150-400); RDW Coefficient Variation 13.6 % (11.7-14.2); RDW Standard Deviation 46.9 fL (35.1-46.3); Red Blood Cell Count 5.63 M/mm3 (3.80-5.20)
[2023-12-11 05:47] LABS: PCO2 Arterial 47.5 mmHg (35-45); PO2 Arterial 103 mmHg (80-100); pH Blood Arterial 7.26 (7.35-7.45)
[2023-12-11] MEDS ORDERED: Furosemide 10 MG/ML 4ML Vial IV ONE (05:50)
[2023-12-11 06:02] LABS: Albumin, Blood 3.1 g/dL (3.4-5.0); Albumin/Globulin Ratio 0.5 (0.8-1.8); Bilirubin, Total 1.3 mg/dL (0.1-1.0); Bun/Creatinine Ratio 21.6 (12.0-20.0); Calcium, Blood 8.8 mg/dL (8.5-10.1); Creatinine, Blood 0.6 mg/dL (0.40-1.00); Potassium, Blood 5.3 mmol/L (3.5-5.5); Total Protein, Blood 9.1 g/dL (6.4-8.2)
[2023-12-11] MEDS ORDERED: CefTRIAXone Sodium 1,000 MG in NS 100 ML IV ONE (07:00)
[2023-12-11] MEDS ORDERED: Azithromycin 500 MG in NS 250 ML IV ONE (07:00)
[2023-12-11 07:01] LABS: Influenza A, PCR NEGATIVE (NEGATIVE); Influenza B, PCR NEGATIVE (NEGATIVE); Resp Syncytial Virus, PCR NEGATIVE (NEGATIVE); SARS-Cov-2 (COVID-19) PCR, MMC NEGATIVE (NEGATIVE)
[2023-12-11] MEDS ORDERED: Acetaminophen 325 MG TABLET PO PRN (08:10)
[2023-12-11] MEDS ORDERED: FLU VACC TS2024-25(6MOS UP)/PF 45 MCG/0.5 ML SYRINGE IM SCH (08:10)
--- NOTE | 2023-12-11 11:45 | NUR ---
ASSUMED CARE. ASSUMED CARE FROM JOSELIN RN, ED NURSE. PT SITTING UPRIGHT ON GURNEY WITH BIPAP ON. SETTINGS 23/02 WITH FIO2 30%. PT DYSPNEIC ON EXERTION. SHE IS ABLE TO ASSIST THIS RN ON ADJUSTING HERSELF IN BED. SMALL ECCHYMOSIS ON BILATERAL FOREARMS, NO OTHER INTEGUMENTARY ABNORMALITIES PRESENT. PT CURRENTLY INCONTINENT OF URINE W/ PUREWICK IN PLACE. BLOOD PRESSURE IS LABILE W/ SYSTOLIC BP RANGING FROM 90-140S. MAP >65. HR IN 90-100S. PT HAS 20G IN LEFT FOREARM, FLUSHES AND DRAWS WELL. RIGHT AC 20G IV OOZING WAS D/C ON ARRIVAL. RIGHT WRIST IV 20G PLACED, FLUSHES AND DRAWS APPROPRIATELY.
[2023-12-11] MEDS ORDERED: Enoxaparin 40 MG/0.4 ML SYR SC SCH (12:00)
[2023-12-11] MEDS ORDERED: Albuterol 2.5 MG/3 ML VIAL INH PRN (12:05)
[2023-12-11] MEDS ORDERED: Furosemide 10 MG / ML 2ML Vial IV ONE (12:40)
[2023-12-11 16:09] LABS: International Normalized Ratio 1.05; Prothrombin Time Results 11.2 Sec (9.7-11.5)
[2023-12-11] MEDS ORDERED: Heparin Sodium,Porcine/0.5 NS 500 ML IV SCH (17:00)
--- NOTE | 2023-12-11 17:49 | NUR ---
SHIFT SUMMARY PT SITTING IN CHAIR EATING DINNER. PT HAS BEEN A&OX4 T/O SHIFT. SHE HAS BEEN ABLE TO ANSWER QUESTIONS APPROPRIATELY AND FOLLOW COMMANDS. PT HAS 20G IN RAC AND LEFT WRIST. THEY FLUSH AND DRAW APPROPRIATELY. HER RESPIRATORY STATUS HAS IMPROVED WITH HER MOVING FROM BIPAP TO 2LPM O2 VIA NC. HER SPO2 HAS REMAINED >94% W/OUT DYSPNEA ON EXERTION. HER LUNG SOUNDS ARE COARSE AND DIMINISHED IN BASES BILATERALLY. BOWEL SOUNDS ARE HYPOACTIVE. PT HAS PUREWICK IN PLACE, SUCTIONING CLEAR YELLOW URINE. PT FAMILY HAS BEEN AT BEDSIDE THROUGHOUT THE DAY. CALL LIGHT IN REACH.
[2023-12-11] MEDS ORDERED: Ibuprofen 400 MG Tab PO PRN (20:05)
[2023-12-11] MEDS ORDERED: Melatonin 5 MG Tablet PO PRN (20:05)
[2023-12-11] MEDS ORDERED: OxyCODONE HCL 5 MG TAB PO PRN (20:10)
--- NOTE | 2023-12-11 20:46 | NUR ---
ASSUMPTION OF CARE ASSUMED CARE OF PATIENT AT 1900, BEDSIDE SHIFT REPORT RECEIVED FROM SYDNEY RN. PT UP IN RECLINER, TRANSITIONED BACK TO BED. PT ORIENTED X4, ANSWERS QUETIONS APPROPRIATELY, FOLLOWS DIRECTION WHEN PROMPTED. PT MOVES EXTREMITIES EQUALLY BILATERALLY. PT COMPLAINING OF PAIN IN HER LEFT BUTTOCK THAT RADIATES DOWN HER LEFT LEG, SHE STATES THIS IS NORMAL FOR HER. PT MEDICATED PER EMAR. HR 90'S SINUS, MAP >65. PT DENIES CP/PRESSURE. PT ON 2L NC OXYGEN SATURATION >95%. PT DENIES SOB OR DIFFICULTY BREATHING. ABDOMEN SOFT, BOWEL TONES ACTIVE IN ALL FOUR QUADRANTS. PT HAS PUREWICK IN PLACE TO SUCTION WITH YELLOW OUTPUT. PIV IN PLACE TO RFA AND LW SL. BED IN LOWEST POSTION, CALL LIGHT WITHIN REACH, CARE CONTINUES.
[2023-12-11] MEDS ORDERED: Lactobacil 2-S.Thermo-Bifido 1 1 Cap PO SCH (21:00)
[2023-12-12] VITALS (21 sets, daily range): BP systolic 78–129; BP diastolic 57–97
--- NOTE | 2023-12-12 05:05 | NUR ---
SHIFT SUMMARY NO ACUTE CHANGES THIS SHIFT. PT CONTINUES TO REST IN BED, ORIENTED X4. PT ANSWERS QUESTIONS APPROPRIATELY, FOLLOWS DIRECTION WHEN PROMPTED AND IS ABLE TO MAKE HER NEEDS KNOWN. PT MOVES EXTREMITIES EQUALLY BILATERALLY. HR 70-80'S SINUS, MAP >65. PT DENIES CP/PRESSURE. PT ON BIPAP 12/8 25% WHILE SLEEPING, ON 2L NC WHILE AWAKE, OXYGEN SATURATION >95%. ABDOMEN SOFT, BOWEL TONES ACTIVE IN ALL FOUR QUADRANTS. PUREWICK AND ATTENDS IN PLACE WITH YELLOW OUTPUT. PIV IN PLACE TO RFA AND LW SL. BED IN LOWEST POSITION, CALL LIGHT WITHIN REACH, CARE CONTINUES.
[2023-12-12 05:18] LABS: BASOPHILS ABSOLUTE AUTO 0.07 K/mm3 (0.00-0.23); BASOPHILS PERCENT AUTO 1 % (0-2); EOSINOPHILS ABSOLUTE AUTO 0.27 K/mm3 (0.00-0.68); EOSINOPHILS PERCENT AUTO 3 % (0-6); Hematocrit 42.5 % (33.0-51.0); Hemoglobin 14.2 g/dL (11.5-16.0); IMMATURE GRAN ABSOLUTE AUTO 0.04 K/mm3 (0.00-0.10); IMMATURE GRAN PERCENT AUTO 0 % (0-1); LYMPHOCYTES ABSOLUTE AUTO 2.18 K/mm3 (0.84-5.20); LYMPHOCYTES PERCENT AUTO 21 % (21-46); MONOCYTES ABSOLUTE AUTO 0.82 K/mm3 (0.16-1.47); MONOCYTES PERCENT AUTO 8 % (4-13); Mean Corpuscular HGB 29.8 pg (26.0-34.0); Mean Corpuscular HGB Conc 33.4 g/dL (31.5-36.5); Mean Corpuscular Volume 89 fL (80-100); Mean Platelet Volume 9.9 fL (9.1-12.4); NEUTROPHILS PERCENT AUTO 68 % (41-73); Platelet Count 190 K/mm3 (150-400); RDW Coefficient Variation 13.7 % (11.7-14.2); RDW Standard Deviation 44.7 fL (35.1-46.3); Red Blood Cell Count 4.77 M/mm3 (3.80-5.20); White Blood Cell Count 10.48 K/mm3 (4.00-11.30)
[2023-12-12 06:01] LABS: Albumin, Blood 2.7 g/dL (3.4-5.0); Albumin/Globulin Ratio 0.6 (0.8-1.8); Bilirubin, Total 1.9 mg/dL (0.1-1.0); Bun/Creatinine Ratio 20.1 (12.0-20.0); Calcium, Blood 8.7 mg/dL (8.5-10.1); Creatinine, Blood 0.7 mg/dL (0.40-1.00); Globulin, Blood 4.8 g/dL (2.2-4.0); Potassium, Blood 3.6 mmol/L (3.5-5.5); Total Protein, Blood 7.5 g/dL (6.4-8.2)
[2023-12-12] MEDS ORDERED: Insulin Human Lispro 100 Units/ML 3ML Syringe SC SCH (07:30)
[2023-12-12] MEDS ORDERED: Azithromycin 250 MG Tab PO SCH (09:00)
[2023-12-12] MEDS ORDERED: Furosemide 10 MG/ML 4ML Vial IV ONE (09:00)
[2023-12-12] MEDS ORDERED: CefTRIAXone Sodium 1,000 MG in NS 100 ML IV SCH (09:00)
[2023-12-12] MEDS ORDERED: Empagliflozin 10 MG TAB PO SCH (09:00)
--- NOTE | 2023-12-12 10:51 | NUR ---
Spiritual Care Visit. Pt. is sitting up in a chair when she welcomes my visit. Pt. is pleasant. Family memebers are at bedside. Facilitate a short life review and listen with interest and a calming presence. Pt. displays evidence of a confidant trust and verbalized gratitude for the spiritual care visit.
[2023-12-12] MEDS ORDERED: Metoprolol Tartrate 25 MG Tab PO SCH (11:00)
[2023-12-12] MEDS ORDERED: Enoxaparin 40 MG/0.4 ML SYR SC SCH (12:00)
[2023-12-12] MEDS ORDERED: Spironolactone 25 MG Tab PO SCH (12:00)
[2023-12-12] MEDS ORDERED: ROPINIROLE HCL4 M1 PO (13:34)
[2023-12-12] MEDS ORDERED: CLOP75 PO (13:35)
[2023-12-12] MEDS ORDERED: IBUP800 PO (13:39)
[2023-12-12] MEDS ORDERED: HYDHCL25 PO (13:41)
[2023-12-12] MEDS ORDERED: TRESIBA FL200 UNIT/2 PO (13:45)
--- NOTE | 2023-12-12 18:38 | NUR ---
ICU TRANSFER TO PCU 16. AMBULATED FROM ICU TO PCU WITH WALKER AND STAFF MEMBERS. VSS, RA ON ARRIVAL. A/A/OX4, INDEPENDANT IN ROOM. FAMILY AT BEDSIDE, WILL CONTINUE TO MONITOR AND TREAT UNTIL CHANGE OF SHIFT.
[2023-12-13 00:30] VITALS: BP 92/60
[2023-12-13 04:00] VITALS: BP 107/63
[2023-12-13 04:24] LABS: Hematocrit 43.7 % (33.0-51.0); Hemoglobin 14.3 g/dL (11.5-16.0)
[2023-12-13 04:48] LABS: Bun/Creatinine Ratio 26.5 (12.0-20.0); Calcium, Blood 8.9 mg/dL (8.5-10.1); Creatinine, Blood 0.75 mg/dL (0.40-1.00); Potassium, Blood 3.3 mmol/L (3.5-5.5)
--- NOTE | 2023-12-13 06:31 | NUR ---
SHIFT SUMMARY PT A&O X4, VSS; ALTHOUGH SBP SOFT IN 90'S - 100'S, ALL MAPS GREATER THAN 65. AT BEGINNING OF SHIFT SBP 84, RECHECK SHOWED 110 AND IMPROVED. AFEBRILE, HRR SINUS RHYTHM IN 70 -80'S. PT ON RA WHILE AWAKE, SPO2 WNL. BIPAP WHILE SLEEPING; 8 WITH 25% FIO2, PT TOLERATED WELL. PT AMBULATING TO RESTROOM, INDEPENDENTLY AND VOIDING WITHOUT DIFFICULTY; 1600 MLS UOP THIS SHIFT. PT TOLERATING WATER INTAKE AND DID HAVE A SMALL SNACK AND TOLERATED IT WELL. PT C/O OF PAIN IN SCIATICA X1 THIS AM; MEDICATION PER EMAR WITH GOOD RELIEF. PT RESTED WELL. NO ACUTE CHANGES. ABLE TO MAKE NEEDS KNOWN, CALL LIGHT IN REACH. WILL UPDATE ONCOMING RN.
[2023-12-13 07:48] VITALS: BP 149/72
[2023-12-13] MEDS ORDERED: Metoprolol Tartrate 25 MG Tab PO SCH (09:00)
[2023-12-13] MEDS ORDERED: Lisinopril 5 MG Tab PO SCH (09:00)
[2023-12-13 11:59] VITALS: BP 138/58
[2023-12-13] MEDS ORDERED: Potassium Chloride 20 MEQ TabCR PO ONE (12:00)
[2023-12-13] MEDS ORDERED: JARDIANCE10 MG PO (12:27)
[2023-12-13] MEDS ORDERED: SPIR25 PO (12:27)
[2023-12-13] MEDS ORDERED: LISI5 PO (12:27)
[2023-12-13] MEDS ORDERED: POTCIT10 PO (12:28)
[2023-12-13] MEDS ORDERED: FURO40 PO (12:28)
[2023-12-13 16:38] VITALS: BP 106/81
--- NOTE | 2023-12-13 17:09 | NUR ---
NURSE NOTE PT IV REMOVED, MARGOT. WELL CATH IN TACT. DISCHARGE INSTRUCTIONS WENT OVER, VITALS TAKEN. PERSONAL BELONGINGS GATHERED, PT WALKED TO OF UNIT W' FAMILY.
== END 2023-12-13 16:25 | disposition home or self-care (01) | DRG 280 ==
LOC: ER 05:32 → ICUE 08:08 → PCU 08:08 → EDBEDREQ 10:23 → ICUE 11:43 → PCU 12-12 12:30
PROVIDERS: Emergency Medicine; Family Medicine Adult Medicine; ADMIT Internal Medicine
PROC: 5A09357 Assistance with Respiratory Ventilation, Less than 24 Consecutive Hours, Continuous Positive Airway Pressure (ICD-10-PCS; principal; 2023-12-11)
PROC: 4A033R1 Measurement of Arterial Saturation, Peripheral, Percutaneous Approach (ICD-10-PCS; 2023-12-11)
PROC: 3E03329 Introduction of Other Anti-infective into Peripheral Vein, Percutaneous Approach (ICD-10-PCS; 2023-12-11)
DX: I11.0 Hypertensive heart disease with heart failure (principal); A41.9 Sepsis, unspecified organism; I21.A1 Myocardial infarction type 2; I50.43 Acute on chronic combined systolic (congestive) and diastolic (congestive) heart failure; J96.01 Acute respiratory failure with hypoxia; R65.20 Severe sepsis without septic shock; J18.9 Pneumonia, unspecified organism; E87.4 Mixed disorder of acid-base balance; E78.5 Hyperlipidemia, unspecified; E03.9 Hypothyroidism, unspecified; E11.65 Type 2 diabetes mellitus with hyperglycemia; I25.10 Atherosclerotic heart disease of native coronary artery without angina pectoris; I25.2 Old myocardial infarction; Z95.5 Presence of coronary angioplasty implant and graft; Z79.890 Hormone replacement therapy; Z79.02 Long term (current) use of antithrombotics/antiplatelets; Z79.82 Long term (current) use of aspirin; Z88.8 Allergy status to other drugs, medicaments and biological substances; Z87.891 Personal history of nicotine dependence
CPT/HCPCS: 0241U; 36415; 36600; 71045; 71260; 80048; 80053; 82803; 82947; 83605; 83735; 83880; 84145; 84443; 84484; 85014; 85018; 85025; 85610; 85730; 93005; 93010; 94660; 94761; 94762; 96365-59; 96366; 96375-59; 99285-25; A9270; C8929; J0456; J0696; J1650; J1940; J7050; Q9957; Q9967

== ENCOUNTER 2024-04-16 09:00 | Inpatient (IN) | payer MEDICARE, BC ==
[~2024-04-16] VITALS: Ht 162.6 cm; Wt 77.0 kg
[2024-04-16] VITALS (9 sets, daily range): BP systolic 110–164; BP diastolic 39–69
[~2024-04-16 09:00] MED LIST changes: +CLOP75 PO; +FURO40 PO; +HYDHCL25 PO; +Heparin Sodium 1000 Units/ML 10ML MDV ONE; +IBUP800 PO; +JARDIANCE10 MG PO; +K-Dur10 MEQ; +LISI5 PO; +NS 1,000 ML IV ONE; +NS 250 ML IV ONE; +Nitroglycerin 2 MG/20 ML BTL ONE; -Nitroglycerin/D5W 250 ML IV ONE; +POTCIT10 PO; +ROPINIROLE HCL4 M1 PO; +SPIR25 PO; +TRESIBA FL200 UNIT/2 PO; +Verapamil HCL 2.5 MG/ML 2ML Injection ONE
[2024-04-16] MEDS ORDERED: NS 1,000 ML IV ONE ×3 (09:09→13:20)
[2024-04-16] MEDS ORDERED: Heparin Sodium 1000 Units/ML 10ML MDV ONE ×2 (09:09→13:07)
[2024-04-16] MEDS ORDERED: Aspirin 81 MG Chew ONE (10:21)
[2024-04-16] MEDS ORDERED: Midazolam HCl 1MG / ML 2ML Vial ONE ×2 (10:24→14:33)
[2024-04-16] MEDS ORDERED: FentaNYL Citrate 50 MCG/ML 2 ML Injection ONE ×2 (10:24→18:54)
[2024-04-16] MEDS ORDERED: Atropine Sulfate 0.1 MG/ML 10ML SYR ONE (12:39)
[2024-04-16] MEDS ORDERED: NS 500 ML IV ONE (13:07)
[2024-04-16] MEDS ORDERED: Norepinephrine Bitartrate 250 ML IV ONE (13:10)
[2024-04-16] MEDS ORDERED: DOBUTAMINE HCL ONE (13:49)
[2024-04-16] MEDS ORDERED: Dextrose 5% 250 ML IV ONE (13:50)
[2024-04-16] MEDS ORDERED: DOBUtamine 250 MG/D5W 250 ML 250 ML IV SCH (14:15)
[2024-04-16] MEDS ORDERED: propofoL 100 ML IV SCH (14:25)
[2024-04-16] MEDS ORDERED: Midazolam HCl 1MG / ML 2ML Vial IV ONE (14:35)
[2024-04-16] MEDS ORDERED: Dextrose 5% 500 ML IV SCH (14:50)
[2024-04-16 14:59] LABS: PCO2 Arterial 36.9 mmHg (35-45); PO2 Arterial 223 mmHg (80-100); pH Blood Arterial 7.21 (7.35-7.45)
[2024-04-16] MEDS ORDERED: FLU VACC TS2024-25(6MOS UP)/PF 45 MCG/0.5 ML SYRINGE IM SCH (15:00)
[2024-04-16 15:05] LABS: Mean Corpuscular HGB 30.6 pg (26.0-34.0); Mean Corpuscular HGB Conc 32.6 g/dL (31.5-36.5); Mean Corpuscular Volume 94 fL (80-100); Mean Platelet Volume 10.4 fL (9.1-12.4); Platelet Count 285 K/mm3 (150-400); RDW Coefficient Variation 14.5 % (11.7-14.2); RDW Standard Deviation 49.8 fL (35.1-46.3); Red Blood Cell Count 4.58 M/mm3 (3.80-5.20); White Blood Cell Count 33.52 K/mm3 (4.00-11.30)
[2024-04-16] MEDS ORDERED: NS 500 ML IV SCH (15:05)
[2024-04-16 15:25] LABS: Bun/Creatinine Ratio 27.6 (12.0-20.0); Calcium, Blood 8.3 mg/dL (8.5-10.1); Creatinine, Blood 0.87 mg/dL (0.40-1.00); Magnesium, Blood 4.2 mg/dL (1.6-2.4)
[2024-04-16 15:58] LABS: BAND PERCENT MAN 5 % (0-8); BASOPHILS PERCENT MAN 0 % (0-2); EOSINOPHILS ABSOLUTE MAN 0.33 K/mm3 (0.00-0.68); EOSINOPHILS PERCENT MAN 1 % (0-6); LYMPHOCYTES ABSOLUTE MAN 3.35 K/mm3 (0.84-5.20); LYMPHOCYTES PERCENT MAN 10 % (21-46); MONOCYTES ABSOLUTE MAN 2.01 K/mm3 (0.16-1.47); MONOCYTES PERCENT MAN 6 % (4-13); NEUTROPHILS ABSOLUTE MAN 27.82 K/mm3 (1.96-9.15); SEG NEUTROPHILS PERCENT MAN 78 % (41-73); TOTAL CELLS COUNTED 100
[2024-04-16 15:58] LABS: International Normalized Ratio 1.02; Prothrombin Time Results 10.9 Sec (9.7-11.5)
[2024-04-16] MEDS ORDERED: Hydrogen Peroxide 1.5 % Solution MT SCH (16:00)
[2024-04-16] MEDS ORDERED: Clopidogrel Bisulfate 300 MG Cap PO SCH (17:00)
--- NOTE | 2024-04-16 17:45 | NUR ---
1430 PT TO ICU 8 FROM HOT END OPERATOR PT WAS BROUGHT TO ICU FROM CATHLAB S/P CODE. PT INTUBATED WITH A 7.5 ETT 24 AT LIPS AND ON VENT AT22/380/5/80%. PT'S DIGITS COLD AND PURPLE AND LE BILAT ALSO MOTTLED. PT HAS FAINT PULSES BILAT DP. PT HAD AN OG PLACED AND A 16 FR PRIETO TEMP PROBE PLACED. PT HAD A LINE TO RIGHT WRIST FROM HOT END OPERATOR AND WAS PUT TO MONITOR AT ZERO'D. PT HAS A PA CATHETER TO RIGHT IJ. CARDIAC CALCULATIONS DONE WITH A CO OF 3.33. CVP 9. PAP MEAN 27. PT MEASUREMENTS FROM PA CATHETER FROM OUT OF NECK IS MEASURED AT 47CM. PT HAS GOOD BLOOD RETURN FROM LINES AN PROPOFOL WAS STARTED FOR SEDATION SINCE PT WAS HIGH PEAK PRESSURING ON THE VENTLIATOR. SEDATION STARTED AT 5MCG AND IS CURRENTLY AT 10MCG OF PROPOFOL. PT CAME TO ICU WITH LEVOPHED AND DOPAMINE. DOPAMINE WAS DC'D AND LEVOPHED HAS BEEN TITRATED FROM OFF TO 8MCG THEN DOWN AND UP FREQ. TO KEEP MAP AT 65. CURRENTLY LEVOPHED IS AT 3MCG AND MAP ON SEFERINO IS 75. PT WAS ALSO PLACED ON DOBUTAMINE FIRST AT 2.5MCG THEN UP TO 5 MCG SINCE GIVING CARDIAC CALCULATION RESULTS TO DR SOLANO. PT HAS TTM ORDERS TO KEEP NORMALTHERMIC. AT 1700 SHE WAS PLACED ON A COOL WATER PAD HER HIGHEST TEMP WAS 97.7 VIA PRIETO CATH. NEURO ASSESSMENT: UPON ARRIVAL FROM HOT END OPERATOR TO HAS LG PUPILS SIZE 8 BUT IS REACTIVE TO LIGHT TO SHRINK TO SIZE 6 RIGHT EYE IS BRISK TO LIGHT AND LEFT EYE IS SLUGGISH TO LIGHT. PT HAD A COUGH AND GAG AND SWALLOW SHE IS RESPONSIVE TO PAINFUL STIMULI TO ALL EXTREMETIES AND GRIMMACES TO PAINFUL STIMULI. CURRENTLY SHE ALSO WILL SLIGHTLY OPEN HER EYES TO LOUD VOICES WITH ENCOURAGEMENT. FAMILY HAS BEEN IN TO BEDSIDE AND DAUGHTER RAHEEM WILL BE IN WITH HER MEDICATION LIST AND DO HER HISTORY ADMIT WITH STAFF TOMORROW. HOT END OPERATOR STATED SHE APPEARD TO HAVE INFILTRATION OF IV TO LEFT ARM. LEFT ARM PUT WITH WARM BLANKET WRAPPED AROUND HER. DR GARAY CONSULTED AND TO BEDSIDE. DR REYNOLDS WAS ALSO TO BEDSIDE. SEE ALL NEW ORDERS.
[2024-04-16] MEDS ORDERED: Ampicillin Sod/Sulbactam Sod 1.5 GM in NS 100 ML IV SCH (18:00)
[2024-04-16] MEDS ORDERED: Insulin Regular 100 UNIT/ML 10ML Vial SC SCH (18:00)
--- NOTE | 2024-04-16 18:44 | NUR ---
EMD OF SHIFT NOTE PT HAS BEEN LIGHTLY SEDATED ON PROPOFOL AT 1OMCG RASS -2. SHE DOES MOVE HER ARMS INDEPENDENTLY AND WITHDRAWLS TO PAINFUL STIMULI APPROPRIATELY. SHE STILL IS ABLE TO HAVE A GOOD COUGH HOWEVER HER ETT SUCTIONING NOW IS BRIGHT PINK/RED. SHE WAS NOTED TO HAVE A LOOSE TOOTH THAT REMAINS IN HER MOUTH. SHE IS MISSING QUITE A FEW TEETH HER DAUGHTER SAID. SHE HAS NOT HAD ANY NEW CHANGES TO NEURO STATUS FROM LAST NOTE. SHE REMAINS IN RESTRAINTS AT THIS TIME BILAT. UPPER EXTREM. PT HAS HAD 650 URINE OUT FROM PRIETO SINCE 1500 WHEN IT WAS PLACED. SHE REMAINS ON DOBUTAMINE AT 5MCG/KG/MIN AND LEVOPHED AT 3MCG/MIN. SHE IS CURRENTLY GETTING AN ANTIBIOTIC. DR SORENSEN TO BEDSIDE TO ASSESS PT. PT IS WAKING UP MORE AND MOVING. INCREASING SEDATION AND GETTING PAIN MEDICATION.
[2024-04-16] MEDS ORDERED: FentaNYL Citrate 50 MCG/ML 2 ML Injection IV PRN ×2 (18:55→23:40)
[2024-04-16] MEDS ORDERED: Cetylpyridinium Chloride 1 EA MISC MT SCH (20:00)
[2024-04-16] MEDS ORDERED: Amiodarone HCl 50 MG / ML 3 ML Amp IV ONE (20:27)
[2024-04-16] MEDS ORDERED: EPINEPhrine HCl 0.1 MG/ML STE Water 10ML SYR XX ONE (20:27)
[2024-04-16] MEDS ORDERED: DOPamine 400 MG/Dextrose 250 ML Bag IV ONE (20:27)
[2024-04-16] MEDS ORDERED: EpiNEPhrine 1 MG/1 ML 1ML Vial XX ONE (20:27)
[2024-04-16] MEDS ORDERED: Magnesium Sulfate 500 MG / ML 2ML Vial XX ONE (20:27)
[2024-04-16] MEDS ORDERED: Atropine Sulfate 0.1 MG/ML 10ML SYR XX ONE (20:27)
--- NOTE | 2024-04-16 21:03 | NUR ---
ASSUMPTION OF CARE: ASSUMED CARE OF PT AT 1900. PT INTUBATED AND SEDATED ON 30 MCG/KG/MIN OF PROPOFOL. PT OPENS EYES, WITHDRAWS TO PAINFUL STIMULI. NOT YET FOLLOWING COMMANDS. PUPILS REACTIVE TO LIGHT, ALTHOUGH LEFT PUPIL APPEARS A LITTLE MORE SLUGGISH. COUGH/GAG/SWALLOW INTACT. VENT SETTINGS AC/VC 22/350/5.0/60%. SPO2 MID TO HIGH 90'S. RR 22-24. ETCO2 24. WATER PLANT PUMP OPERATOR SUPERVISOR IN PLACE, ST WITH HR 100'S. LEVOPHED AT 5 MCG/MIN TO MAINTAIN MAP >65. DOBUTAMINE AT 5 MCG/KG/MIN. SEE FLOWSHEET FOR TITRATIONS. PA CATHETER TO RIJ. CVP 4, CO 3.07, PAP MEAN 26. A-LINE TO RIGHT WRIST, PATENT, DRESSING C/D/I, ARMBOARD IN PLACE. PIV TO LFA PATENT. PULSES PALPABLE IN ALL EXTREMETIES ALTHOUGH FAINT. OGT SET TO LIS. RED SECRETIONS NOTED FROM ET TUBE, ET TUBE 7.5, 22 AT LIP. PRIETO PATENT AND DRAINING TO GRAVITY, YELLOW URINE. NO BM YET. COOLING BLANKET IN PLACE TO MAINTAIN NORMOTHERMIC TEMP. BED LOW AND LOCKED.
[2024-04-16 22:53] LABS: PCO2 Arterial 24.6 mmHg (35-45); PO2 Arterial 149 mmHg (80-100); pH Blood Arterial 7.34 (7.35-7.45)
[2024-04-16 22:57] LABS: BASOPHILS ABSOLUTE AUTO 0.08 K/mm3 (0.00-0.23); BASOPHILS PERCENT AUTO 0 % (0-2); EOSINOPHILS ABSOLUTE AUTO 0.01 K/mm3 (0.00-0.68); EOSINOPHILS PERCENT AUTO 0 % (0-6); Hematocrit 41.7 % (33.0-51.0); Hemoglobin 13.9 g/dL (11.5-16.0); IMMATURE GRAN ABSOLUTE AUTO 0.24 K/mm3 (0.00-0.10); IMMATURE GRAN PERCENT AUTO 1 % (0-1); LYMPHOCYTES ABSOLUTE AUTO 1.23 K/mm3 (0.84-5.20); LYMPHOCYTES PERCENT AUTO 4 % (21-46); MONOCYTES ABSOLUTE AUTO 1.96 K/mm3 (0.16-1.47); MONOCYTES PERCENT AUTO 6 % (4-13); Mean Corpuscular HGB 30.3 pg (26.0-34.0); Mean Corpuscular HGB Conc 33.3 g/dL (31.5-36.5); Mean Corpuscular Volume 91 fL (80-100); Mean Platelet Volume 10.3 fL (9.1-12.4); NEUTROPHILS PERCENT AUTO 89 % (41-73); Platelet Count 260 K/mm3 (150-400); RDW Coefficient Variation 14.6 % (11.7-14.2); Red Blood Cell Count 4.58 M/mm3 (3.80-5.20); White Blood Cell Count 30.92 K/mm3 (4.00-11.30)
[2024-04-16 23:19] LABS: Bun/Creatinine Ratio 31.7 (12.0-20.0); Calcium, Blood 8.6 mg/dL (8.5-10.1); Creatinine, Blood 0.95 mg/dL (0.40-1.00); Magnesium, Blood 3.4 mg/dL (1.6-2.4); Potassium, Blood 4.5 mmol/L (3.5-5.5)
--- NOTE | 2024-04-16 23:55 | NUR ---
UPDATE: CALL PLACED TO DR. SOLANO REGARDING PT BLOOD PRESSURE. SBP READING IN THE 160'S WITH MAP <65. ORDERS GIVEN TO TITRATE LEVOPHED FOR MAP >55 WITH SBP 130-140. ORDERS FOR LABS AND ABG. RESULTED TO DR. SOLANO. DR. SOLANO AT THE BEDSIDE TO EVALUATE PT. NO FURTHER ORDERS GIVEN.
[2024-04-17] VITALS (8 sets, daily range): BP systolic 101–173; BP diastolic 34–50
[2024-04-17 02:14] LABS: Hematocrit 41.1 % (33.0-51.0); Hemoglobin 13.8 g/dL (11.5-16.0); Mean Corpuscular HGB 30.6 pg (26.0-34.0); Mean Corpuscular HGB Conc 33.6 g/dL (31.5-36.5); Mean Corpuscular Volume 91 fL (80-100); Mean Platelet Volume 10.4 fL (9.1-12.4); Platelet Count 246 K/mm3 (150-400); RDW Coefficient Variation 14.6 % (11.7-14.2); RDW Standard Deviation 49.2 fL (35.1-46.3); Red Blood Cell Count 4.51 M/mm3 (3.80-5.20); White Blood Cell Count 27.47 K/mm3 (4.00-11.30)
[2024-04-17 02:41] LABS: Bun/Creatinine Ratio 28.8 (12.0-20.0); Calcium, Blood 8.7 mg/dL (8.5-10.1); Creatinine, Blood 1.04 mg/dL (0.40-1.00); Potassium, Blood 4.3 mmol/L (3.5-5.5)
[2024-04-17 04:16] LABS: PCO2 Arterial 27.6 mmHg (35-45); PO2 Arterial 90.9 mmHg (80-100); pH Blood Arterial 7.33 (7.35-7.45)
[2024-04-17 04:58] LABS: Magnesium, Blood 3.5 mg/dL (1.6-2.4); Phosphorus, Blood 4.3 mg/dL (2.5-4.9)
--- NOTE | 2024-04-17 05:47 | NUR ---
SHIFT SUMMARY: PT REMAINS INTUBATED AND SEDATED. PT WAKING UP, FOLLOWING COMMANDS. NODS HEAD YES/NO TO SIMPLE QUESTIONS. PT VERY ANXIOUS AT TIMES. PROPOFOL AT 40 MCG/KG/MIN FOR VENT COMPLIANCE AND COMFORT. MEDICATED WITH PRN FENTANYL FOR PAIN. LUNGS CLEAR. VENT SETTINGS AC/VC 22/350/5/40%. SPO2 MID 90'S. ETCO2 25. FRY COOK IN PLACE, SR/ST HR 98-105. MAP >55 WITH SBP 130-140. LEVOPHED TITRATED FOR EFFECT. SEE FLOWSHEET FOR TITRATION. DOBUTAMINE CONTINUES AT 5 MCG/KG/MIN PER DR. SOLANO. PA CATHETER TO RIJ REMAINS INTACT. A-LINE TO R RADIAL INTACT WITH ARMBOARD IN PLACE. PIV TO LFA INTACT. PRIETO PATENT AND DRAINING TO GRAVITY YELLOW URINE. NO BM THIS SHIFT. BED LOCKED.
[2024-04-17] MEDS ORDERED: Pantoprazole Sodium 40 MG Injection IV SCH (06:00)
[2024-04-17] MEDS ORDERED: Enoxaparin 40 MG/0.4 ML SYR SC SCH (09:00)
[2024-04-17] MEDS ORDERED: Atorvastatin 40 MG Tab PO SCH (09:00)
[2024-04-17] MEDS ORDERED: Clopidogrel Bisulfate 75 MG Tab PO SCH (09:00)
[2024-04-17] MEDS ORDERED: Levothyroxine Sodium 100 MCG Vial IV SCH (09:00)
[2024-04-17] MEDS ORDERED: Aspirin 81 MG Chew PO SCH (09:00)
--- NOTE | 2024-04-17 12:39 | NUR ---
REASSESSMENT PT WAS ALERT THIS MORNING, EVEN WITH PROPOFOL INFUSING. AFTER ECHO WAS COMPLETED, SEDATION TURNED OFF AND RT SWITCHED PT TO PS FOR WEANING TRIAL. PT DID WELL AND WAS EXTUBATED TO 2L/NC AT 0903. PT HAS REMAINED ON 2L, SPO2 CURRENTLY 93%. PT IS ALERT, ORIENTED TO SELF, PLACE. SR WITH RATE IN THE 90S. DOBUTAMINE TITRATED OFF, LEVOPHED TITRATED DOWN TO 1MCG/MIN. ATTEMPTED TO TURN LEVOPHED OFF, BUT MAP DROPPED BELOW 55. SWAN REMAINS IN PLACE AT 47CM. R ART LINE SITE C/D/I, NO HEMATOMA. MULTIPLE FAMILY MEMBERS AT BEDSIDE AND HAVE BEEN UPDATED.
--- NOTE | 2024-04-17 17:11 | NUR ---
SHIFT SUMMARY PT WAS EXTUBATED THIS MORNING AND HAS REMAINED ON 2L/NC SINCE. SHE HAS BEEN ALERT AND ORIENTED TO PERSON AND PLACE. LUNGS ARE CLEAR. RENEE REMAINS IN R NECK AT 47CM. DR. SOLANO ROUNDED THIS AFTERNOON AND SAID TO LEAVE IT IN FOR TONIGHT. PT'S PERIPHERAL BP ON THE L ARM READS MUCH LOWER THAN THE R ARM SO DR. SOLANO SAID TO USE THE R ARM WHEN THE ART LINE IS OUT. EVEN THE R ARM IS READING ABOUT 30 POINTS LOWER THAN THE ART LINE SO HE SAID TO LEAVE IN FOR TONIGHT WELL. HE DID GIVE ORDER FOR PT TO HAVE A DIET. SHE PASSED HER BEDSIDE SWALLOW EVAL. PRIETO DRAINING CL YELLOW URINE.
--- NOTE | 2024-04-17 18:16 | NUR ---
PT IS HYPERTENSIVE THIS EVENING. MEDICATED FOR BACK PAIN, BUT NO DECREASE IN BP. RE ZEROED ART LINE ANDSBP REMAINS IN 160-170S. CALLED AND SPOKE WITH DR. SOLANO AND RECEIVED ORDER FOR CARVEDILOL AND TO DC THE METOPROLOL.
[2024-04-17] MEDS ORDERED: Carvedilol 6.25 MG Tab PO SCH (18:20)
[2024-04-17] MEDS ORDERED: OxyCODONE HCL 5 MG TAB PO PRN (19:35)
--- NOTE | 2024-04-17 19:48 | NUR ---
ASSUMPTION OF CARE: ASSUMED CARE OF PT AT 1900. PT ALERT AND ORIENTED TO ALL. FOLLOWS DIRECTION AND MAKES NEEDS KNOWN. PT ON 2L NC WITH SPO2 90'S. DENIES SOB. LUNGS CLEAR/DIM. AIRCRAFT CAPTAIN IN PLACE, ST WITH HR 100'S. SBP 120'S WITH MAP >65 ACCORDING TO R RADIAL A-LINE. ARMBOARD IN PLACE. PA CATHETER TO RIJ AT 47 CM. CO 5.31, CVP 6, PAP MEAN 22. PIV TO LFA PATENT. PRIETO IN PLACE, DRAINING TO GRAVITY YELLOW URINE. NO BM YET. BED LOW AND LOCKED, CALL LIGHT IN REACH.
[2024-04-17 21:55] LABS: PCO2 Arterial 31.8 mmHg (35-45); PO2 Arterial 166 mmHg (80-100); pH Blood Arterial 7.38 (7.35-7.45)
--- NOTE | 2024-04-18 00:51 | NUR ---
UPDATE: PT'S FINGERS COOL AND PURPLE BILATERALLY. UNABLE TO PALPATE PULSES. DOPPLER PULSE HEARD ON LEFT BUT NOT ON RIGHT. CALL PLACED TO DR. ZAMUDIO, ORDER FOR ARTERIAL ULTRASOUND PLACED. INDUSTRIAL ORGANIZATIONAL PSYCHOLOGIST AT BEDSIDE.
[2024-04-18 04:26] LABS: Hematocrit 35.4 % (33.0-51.0); Mean Corpuscular HGB 30.5 pg (26.0-34.0); Mean Corpuscular HGB Conc 33.9 g/dL (31.5-36.5); Mean Corpuscular Volume 90 fL (80-100); Mean Platelet Volume 10.3 fL (9.1-12.4); Platelet Count 150 K/mm3 (150-400); RDW Coefficient Variation 14.8 % (11.7-14.2); RDW Standard Deviation 49.6 fL (35.1-46.3); Red Blood Cell Count 3.93 M/mm3 (3.80-5.20); White Blood Cell Count 26.07 K/mm3 (4.00-11.30)
[2024-04-18 04:37] LABS: Bun/Creatinine Ratio 35.1 (12.0-20.0); Calcium, Blood 8.7 mg/dL (8.5-10.1); Creatinine, Blood 0.83 mg/dL (0.40-1.00); Potassium, Blood 4.2 mmol/L (3.5-5.5)
--- NOTE | 2024-04-18 04:57 | NUR ---
SHIFT SUMMARY: PT REMAINS ALERT AND ORIENTED ALTHOUGH FREQUENTLY REPEATS HERSELF. REMAINS ON 2L NC T/O THE NIGHT. ATTEMPTED BIPAP AND PT DID NOT TOLERATE. SPO2 90'S. DENIES SOB. LUNGS CLEAR. SIGN PAINTER REMAINS IN PLACE, SR WITH HR 90'S. SBP RANGING FROM 90-160. MAP 55-80. DENIES CP/PRESSURE. PA CATHETER REMAINS IN RIGHT IJ. 47 CM. A-LINE REMAINS IN RIGHT WRIST. FINGERS HAVE REGAINED COLOR AND TEMP. PULSES HEARD BY DOPPLER. PRIETO IN PLACE, DRAINING TO GRAVITY. X-LARGE HARD BM THIS SHIFT. TOLERATING PO INTAKE. BED LOW AND LOCKED, CALL LIGHT IN REACH.
[2024-04-18] MEDS ORDERED: Polyethylene Glycol 3350 17 gm PO PRN (08:35)
[2024-04-18] MEDS ORDERED: Metoprolol Succinate 25 MG TABCR PO SCH (09:00)
[2024-04-18] MEDS ORDERED: Docusate Sodium 100 MG Cap PO SCH (09:00)
[2024-04-18 09:18] VITALS: BP 129/57
[2024-04-18] MEDS ORDERED: DOBUtamine 250 MG/D5W 250 ML 250 ML IV SCH (09:30)
--- NOTE | 2024-04-18 09:45 | NUR ---
PT MEDICATED SINCE EXTUBATION TO HELP WITH WORK OF BREATHING. PT HAD LOUD, SNOROUS RESPIRATIONS. AT 0934, PT HR QUICKLY DROPPED FROM THE 160S TO 70S. PT'S FAMILY AT THE BEDSIDE AND UPDATED. PT HAVING AGONAL BREATHS AT THAT TIME. AT 0940, ELECTRICAL ACTIVITY STOPPED, HEART TONES NOT ABLE TO BE AUSCULTATED AND PRONOUNCED. PT'S MOTHER AND FRIENDS AT THE BEDSIDE INFORMED. INFRASTRUCTURE DIRECTOR INFORMED AND CAME TO THE BEDSIDE. SUPPORT PROVIDED.
--- NOTE | 2024-04-18 10:38 | NUR ---
Spiritual care visit conducted. Pt is awake and alert and conversational. Pt recently suffered a cardiac arrest but appears to be recovering smoothly. Pt is expecting discharge in the next few days and is eager to be out of the bed. Pt's coping mechanism is remaining busy. Assessed pt's family and support systems and provided compassionate listening. Pt is the eldest of eleven children and comes from a long line of other large families. Pt reports being a person of handy and believes that it must "start in the home." Prayer offered and willingness to respond to any needs of pt. Pt verbalized gratitude and appeared to be more at ease following visit.
[2024-04-18] MEDS ORDERED: Lisinopril 5 MG Tab PO SCH (11:00)
[2024-04-18] MEDS ORDERED: Empagliflozin 25 MG TAB PO SCH (11:00)
[2024-04-18] MEDS ORDERED: Insulin Regular 100 UNIT/ML 10ML Vial SC SCH (11:30)
--- NOTE | 2024-04-18 13:13 | NUR ---
REASSESSMENT PT HAS CONTINUED TO BE ALERT AND ORIENTED. SEEMS TO HAVE SOME SHORT TERM MEMORY DEFICITS BECAUSE SHE WILL SAY SOMETHING, AND THEN REPEAT IT 10 MINUTES LATER. LUNGS ARE CLEAR, STILL ON 2L/NC. SHE HAS BEEN UP TO THE COMMODE THIS AM FOR A BM. DR. SOLANO ROUNDED AND REMOVED HER SWAN MILENA CATHETER. SITE IS C/D/I. HE GAVE ORDERS TO REMOVE ART LINE WELL PRIETO. ART LINE REMOVED AND SINCE IT APPEARED TO BE THE SHEATH FROM HER PROCEDURE, TR BAND PLACED AFTER HOLDING PRESSURE FOR [address] IN PL[address] FOR AN HOUR AND STARTING TO TAKE AIR OUT. PRIETO REMOVED WITHOUT COMPLICATION. FAMILY MEMBERS AT THE BEDSIDE AND HAVE BEEN UPDATED.
[2024-04-18 15:27] VITALS: BP 94/39
[2024-04-18 15:30] VITALS: BP 90/67
[2024-04-18 16:00] VITALS: BP 104/84
--- NOTE | 2024-04-18 17:01 | NUR ---
SHIFT SUMMARY PT HAS REMAINED ALERT AND ORIENTED, STILL FORGETFUL AND REPEATING HERSELF OR ASKING THE SAME QUESTIONS THROUGHOUT THE SHIFT. LUNGS CLEAR, 2L/NC, SR, MAP 93 WHEN TAKING BP ON HER RLE BECAUSE THE ART LINE WAS TAKEN OUT OF THE R RADIAL THIS AFTERNOON. SWAN ALSO REMOVED AND SITE IS C/D/I. NO VOID SINCE PRIETO REMOVED. UP TO THE CHAIR FOR ABOUT AN HOUR THIS AFTERNOON, OTHERWISE SHIFTING HERSELF AROUND IN BED. IV IN L FA INFILTRATED. SPOKE WITH DR. EAST WHO SAID PT COULD BE PCU STATUS AND CONTINUE WITHOUT IV ACCESS HE WOULD SWITCH HER ABX TO ORAL.
[2024-04-18 20:05] VITALS: BP 140/112
--- NOTE | 2024-04-18 20:28 | NUR ---
ASSUMED CARE AT 1900 PATIENT IS ALERT AND ORIENTED X4. SP02 94% ON 2L VIA NC. WEAK COUGH DUE TO RIB PAIN, LS COARSE T/O. MODERATE AMOUNT OF THICK RED SPUTUM. DENIES SOB. HR SR 70s, BP STABLE. CP FROM RIBS AND COUGHING. UP TO BSC. RIGHT RADIAL AND RIGHT IJ SITES WITH SMALL AMOUNT OF BRUISING, TEGADERMS C/D/I
[2024-04-18] MEDS ORDERED: Amoxicillin/Clavulanate K 875 MG Tab PO SCH (21:00)
[2024-04-19 00:04] VITALS: BP 111/42
[2024-04-19 04:00] VITALS: BP 121/39
[2024-04-19 04:52] LABS: Hematocrit 33.1 % (33.0-51.0); Hemoglobin 10.8 g/dL (11.5-16.0); Mean Corpuscular HGB 30.6 pg (26.0-34.0); Mean Corpuscular HGB Conc 32.6 g/dL (31.5-36.5); Mean Corpuscular Volume 94 fL (80-100); Mean Platelet Volume 10.4 fL (9.1-12.4); Platelet Count 126 K/mm3 (150-400); RDW Coefficient Variation 14.8 % (11.7-14.2); RDW Standard Deviation 51.7 fL (35.1-46.3); Red Blood Cell Count 3.53 M/mm3 (3.80-5.20); White Blood Cell Count 17.46 K/mm3 (4.00-11.30)
[2024-04-19 05:10] LABS: Bun/Creatinine Ratio 39.9 (12.0-20.0); Calcium, Blood 8.4 mg/dL (8.5-10.1); Creatinine, Blood 0.95 mg/dL (0.40-1.00)
[2024-04-19] MEDS ORDERED: Levothyroxine Sodium 0.1 MG Tab PO SCH (06:00)
--- NOTE | 2024-04-19 06:45 | NUR ---
SHIFT SUMMARY PATIENT ALERT AND ORIENTED X4, FORGETFUL AT TIMES. SP02 98% ON 2-3L NC, LS COARSE AND WEAK COUGH. RIB PAIN 8/10. PATIENT ENCOURAGED TO DEEP BREATHE AND COUGH. HR SR 80s, BP STABLE. UP TO BSC THIS AM. NO ACUTE CHANGES. CALL LIGHT IN REACH
[2024-04-19 08:00] VITALS: BP 121/39
[2024-04-19] MEDS ORDERED: Guaifenesin/Dextromethorphan Syrup 5 ML UDC PO PRN (09:00)
[2024-04-19] MEDS ORDERED: Guaifenesin/Dextromethorphan Syrup 5 ML UDC PO ONE (09:00)
[2024-04-19] MEDS ORDERED: rOPINIRole HCl 2 MG Tab PO SCH (09:00)
[2024-04-19] MEDS ORDERED: GuaiFENesin 600 MG TabCR PO SCH (09:00)
--- NOTE | 2024-04-19 11:03 | NUR ---
ASSUMED CARE OF PATIENT AT APPROXIMATELY 0700. REPORT RECEIVED FROM HEAVENLY MERINO. PT AWAKE IN BED, INTERACTING WITH STAFF APPROPRIATELY DURING BEDSIDE REPORT. CONTINOUS CARDIAC MONITORING IN PLACE SHOWS SR, BP STABLE. ON 2 LPM O2 VIA NC WITH O2 SATURATION > 92%. DENIES CP/SOB. FAMILY AT BEDSIDE. SEE SHIFT ASSESSMENT FOR FULL DETAILS.
[2024-04-19] MEDS ORDERED: Ondansetron HCl 2 MG / ML 2ML Vial IV PRN (11:45)
[2024-04-19] MEDS ORDERED: Ondansetron 4 MG TAB PO PRN (11:50)
[2024-04-19 12:00] VITALS: BP 97/63
[2024-04-19] MEDS ORDERED: AMOCLA875 PO (13:42)
[2024-04-19] MEDS ORDERED: CARV6.25 PO (14:15)
[2024-04-19] MEDS ORDERED: Q-Tussin100 MG/5 M PO (14:16)
[2024-04-19] MEDS ORDERED: DOCU100 PO (14:17)
[2024-04-19] MEDS ORDERED: GUAI600T33 PO (14:19)
[2024-04-19] MEDS ORDERED: MIRALAX1714 PO (14:21)
[2024-04-19] MEDS ORDERED: VISBIOME 112.51 EACH PO (14:23)
--- NOTE | 2024-04-19 16:26 | NUR ---
Spiritual care visit conducted. Pt is awake and alert with family at bedside. Drawer Waxer Cam is also present. Pt is in a positive mood and is optimistic about discharge and recovery. Provided compassionate listening and encouragement. Cultivated a calm space for conversation and connection with family. Pt and family thanked us for the visit.
[2024-04-19 17:00] VITALS: BP 120/97
--- NOTE | 2024-04-19 17:04 | NUR ---
SHIFT SUMMARY PT REMAINED ALERT AND ORIENTED X 4 T/O ENTIRETY OF SHIFT. ABLE TO FOLLOW COMMANDS, MAKE PURPOSEFUL MOVEMENTS, AND MAKE NEEDS KNOWN. TRANSFERRED TO AND FROM BED/CHAIR WITH PT AND THIS RN THIS SHIFT. PT UNSTEADY WHEN TRANSFERRING AND FREQUENTLY REQUESTS TO "DO IT MYSELF". REPORTED ONE EPISODE OF RIB PAIN. MEDICATED PER EMAR WITH GOOD BENEFIT. CONTINUOUS CARDIAC MONITORING IN PLACE SHOWED SR WITH HR IN 60'S-80'S, BRIEF EPISODE OF ASYMPTOMATIC HYPOTENSION AFTER ENCOUNTER WITH PT. ON RA - 1LPM O2 VIA NC WITH O2 SATURATIONS > 90%. HOME O2 EVAL PENDING. REPORTED ONE EPISODE OF NAUSEA THIS SHIFT. MEDICATED PER EMAR WITH GOOD BENEFIT. TOLERATING PO INTAKE WELL. UP TO BEDSIDE COMMODE TO VOID. R RADIAL AND IJ SITES C/D/I, UNCHANGED FROM START OF SHIFT. WILL CONTINUE TO MONITOR AND REPORT TO ONCOMING RN.
[2024-04-19 20:29] VITALS: BP 111/73
--- NOTE | 2024-04-19 20:40 | NUR ---
ASSUMED CARE AT 1900 PATIENT IS ALERT AND ORIENTED X4. SP02 94% ON 1L VIA NC, DENIES SOB. WEAK COUGH AND LS COARSE T/O. HR SR 70s, BP STABLE. DENIES CP/PRESSURE. ABLE TO REPOSITION SELF. MEDICATED FOR 7/10 BACK PAIN PER EMAR. CALL LIGHT IN REACH
[2024-04-20] VITALS (36 sets, daily range): BP systolic 67–129; BP diastolic 36–112
--- NOTE | 2024-04-20 06:25 | NUR ---
SHIFT SUMMARY PATIENT REMAINED ALERT AND ORIENTED THROUGH THE NIGHT. SP02 94% ON RA, DENIES SOB, LS REMAIN COARSE. PATIENT SR MOST THE NIGHT, AT APPROX 0300 PATIENT AFIB 90s-110. BP STABLE. DENIES CP PRESSURE. UP TO BSC WITH MINIMAL ASSISTANCE. TRANSFERED TO RECLINER THEN BACK TO BED AFTER A COUPLE HOURS. MEDICATED PER EMAR FOR BACK PAIN. CALL LIGHT IN REACH
--- NOTE | 2024-04-20 09:11 | NUR ---
AM NOTE... ASSUMED CARE OF PT AT 0700, PT IS A&Ox4 WITH SOME CONFUSION SUCH THE PT DID NOT REMEMBER WHY HER RIBS HURT AND THAT SHE HAD CPR. PT IS IN AFIB IN THE 90'S-110'S, BP IS STABLE WITH MAPS>65. EKG DONE PER PROVIDER REQUEST. PT IS ON RA WITH O2 SATS>92%. L/S COARSE T/O DIM IN THE BASES. BT PRESENT AND HYPOACTIVE, ABD SOFT NONTENDER TO PALPATION. PLANS FOR POSSIBLE D/C HOME TODAY.
[2024-04-20] MEDS ORDERED: NS 500 ML IV ONE (10:50)
--- NOTE | 2024-04-20 13:59 | NUR ---
PT UPDATE... PT HAD A HOME O2 EVAL WITH RT AT 1000, PT DID WELL, SHE WALKED AROUND BOTH SIDES OF THE UNIT WITHOUT ISSUE. WHEN THE PT GOT BACK TO HER ROOM PT'S BP WAS NOTED TO BE HYPOTENSIVE WITH MAPS IN THE 50'S, PROVIDER WAS NOTIFIED AND CAME TO ASSESS THE PT. NEW ORDERS FOR A 500MLS BOLUS OF NS WAS GIVEN AND PLANS TO D/C HOME TODAY WERE CANCELED. THE PT WAS HELPED BACK INTO HER BED AND THE BOLUS WAS GIVEN. PT'S BP IMPROVED ONCE SHE WAS BACK IN THE BED AND IMPROVED MORE AFTER THE BOLUS.
--- NOTE | 2024-04-20 14:38 | NUR ---
PT UPDATE... AT 1420 THE PT'S LEFT ARM FROM THE ELBOW DOWN WAS NOTED TO HAVE INCREASED SWELLING AND IS PURPLE/DUSKY, CAP REFIL IS 3 SECONDS. RADIAL PULSE WAS UNPALPABLE BUT WAS FOUND WITH DOPPLER. ARM WAS ELEVATED ON 2 PILLOWS.
[2024-04-20] MEDS ORDERED: NS 1,000 ML IV SCH (16:10)
[2024-04-20 16:37] LABS: Hematocrit 34.6 % (33.0-51.0); Hemoglobin 11.5 g/dL (11.5-16.0); Mean Corpuscular HGB 30.7 pg (26.0-34.0); Mean Corpuscular HGB Conc 33.2 g/dL (31.5-36.5); Mean Corpuscular Volume 92 fL (80-100); Mean Platelet Volume 10.3 fL (9.1-12.4); Platelet Count 166 K/mm3 (150-400); RDW Coefficient Variation 14.5 % (11.7-14.2); RDW Standard Deviation 48.5 fL (35.1-46.3); Red Blood Cell Count 3.75 M/mm3 (3.80-5.20); White Blood Cell Count 15.34 K/mm3 (4.00-11.30)
[2024-04-20 17:04] LABS: Bun/Creatinine Ratio 40.5 (12.0-20.0); Calcium, Blood 8.6 mg/dL (8.5-10.1); Creatinine, Blood 0.81 mg/dL (0.40-1.00); Potassium, Blood 4.8 mmol/L (3.5-5.5)
[2024-04-20] MEDS ORDERED: Apixaban 5 MG Tab PO SCH ×2 (18:00→21:00)
--- NOTE | 2024-04-20 18:28 | NUR ---
SHIFT SUMMARY.... PROVIDER WAS NOTIFIED OF THE CHANGES TO THE PT'S LEFT ARM, NEW ORDERS FOR A VENOUS DUPLEX ULTRA SOUND WERE GIVEN, PER ULTRA SOUND RESULTS THE PT HAS EXTENSIVE DVTs T/O THE LEFT ARM PROVIDER WAS NOTIFIED, ELIQUIS WAS STARTED PER ORDERS. PT CONTIUES TO BE IN AFIB WITH CONTROLLED RATES IN TEHE 80'S-110'S. BP WAS STABLE AFTER THE 500MLS BOLUS UNTIL 1600 WHEN BP STARTED TO DROP AGAIN TO MAPS IN THE 50'S. PT WAS DROWSY AND LIGHT HEADED WITH THE HYPOTENSION. PROVIDER WAS CALLED, ORDERS FOR A 1000MLS BOLUS AND LABS. PT RESPONDED WELL TO THE BOLUS. ECHO WAS DONE AT THE BEDSIDE. PT WAS UPDATED ON THE DVTs AND PLAN OF CARE. WILL REPORT TO ONCOMING RN.
--- NOTE | 2024-04-20 21:31 | NUR ---
ASSUMED CARE AT 1900 PATIENT IS ALERT AND ORIENTED X4. SP02 95% ON RA, DENIES SOB. LS COARSE, WEAK COUGH DUE TO RIB PAIN. HR A.FIB 90s-110, BP STABLE. DENIES CP/PRESSURE. MEDICATED FOR BACK PAIN PER EMAR. DOPPLER PULSE TO LUE, ARM APPEARS DUSKY/PURPLE, SENSATION INTACT, SOME SWELLING. PATENT ABLE TO REPOSITION SELF IN BED. CALL LIGHT IN REACH
[2024-04-21] VITALS (30 sets, daily range): BP systolic 63–156; BP diastolic 39–100
--- NOTE | 2024-04-21 05:58 | NUR ---
SHIFT SUMMARY PATIENT REMAINS ALERT AND ORIENTED X4. SP02 >93% ON RA. HR A.FIB 90-110s. BP STABLE THROUGH THE NIGHT. DENIES CP/PRESSURE. LEFT ARM REMAINS SWOLLEN, COLOR IMPROVING, PATIENT DENIES PAIN IN LUE. MEDICATED FOR BACK PAIN PER EMAR. UP TO BSC WITH MINIMAL ASSISTANCE. CALL LIGHT IN REACH
[2024-04-21] MEDS ORDERED: Carvedilol 3.125 MG Tab PO SCH ×2 (08:00)
[2024-04-21] MEDS ORDERED: Lisinopril 5 MG Tab PO SCH (09:00)
[2024-04-21] MEDS ORDERED: Midodrine 5 MG Tab PO ONE (11:10)
--- NOTE | 2024-04-21 15:00 | NUR ---
PATIENT IS ALERT AND ORIENTED X 4. SHE IS ABLE TO MAKE HER NEEDS KNOWN AND CALLS APPROPRIATLEY. AFIB HR 100-110S. ON PO ELIQUIS. PATIENT BECAME HYPOTENSIVE AFTER AM ADMINISTRATION OF CARVEDILOL. SBP 80-100A, MAP 50-60S. DR NI NOTIFIED. NEW RX FOR MIDODRINE RECIEVED AND ADMINISTERED. DR NI AT BEDSIDE THIS AFTERNOON REPEAT EKG COMPLETED. PATIENT STATUS UPDATE TO PCU. LUNGS CLEAR TO AUSCULTATION, DENIED ANY SOB NO VISIBLE INCREASED WOB. +COUGH. PATIENT REPORTS THICK SECRETIONS. ABDOMEN IS SOFT/NON TENDER WITH NORMOACTIVE BOWEL TONES MOVES HER EXTREMITIES WELL, USES FWW WITH SBA FOR AMBULATION. LUE RADIAL PULSE LOCATED WITH DOPPLER, SKIN IS MOTTLED AND FINGERTIPS CYANOTIC. RUE PALPABLE RADIAL PULSE, FINGER TIPS MOTTLED. SENSTAION INTACT PER PT WITH PMH NEUROPATHY IN R HAND. SMALL SCAB PRESENT TO LLE-BRAVO NO VISIBLE REDNESS OR SWELLING. ECCYMOSIS TO CHEST AND PRIOR RIJ CENTRAL LINE SITE. CHRONIC LOW BACK/SIATICA PAIN PER PT MANAGED WITH PRN PAIN MEDICATION. PT REPORTED SOME CHEST WALL/RIB PAIN OCCURRING WHILE COUGHING. PT DECLINED BED BATH TODAY. MULTIPLE FAMILY MEMBERS INTO VISIT TODAY. TRANSERRED TO PCU APPROX 1500.
--- NOTE | 2024-04-21 18:09 | NUR ---
PATIENT TRANSFERRED TO PCU FROM ICU, PATIENT IS VERY PAINFUL WHEN COUGHING FROM CHEST COMPRESSIONS, SHE IS KIND AND APPROPRIATE, LEFT ARM IS DUSKY AND THE DOPPLER IS THE ONLY WAY TO GET A RADIAL PULSE, EXTENSIVE BLOOD CLOTS IN THAT ARM. PATIENT GETS VERY SYMPTOMATIC WHEN SHE IS HYPOTENSIVE, SHE WILL BE VERY LETHARGIC AND DIZZY
[2024-04-21] MEDS ORDERED: Acetaminophen 325 MG TABLET PO PRN (22:30)
[2024-04-21] MEDS ORDERED: OxyCODONE HCL 5 MG TAB PO PRN (22:35)
[2024-04-22] VITALS (8 sets, daily range): BP systolic 100–142; BP diastolic 44–104
[2024-04-22 05:50] LABS: Bun/Creatinine Ratio 33.5 (12.0-20.0); Calcium, Blood 8.8 mg/dL (8.5-10.1); Creatinine, Blood 0.66 mg/dL (0.40-1.00); Potassium, Blood 4.5 mmol/L (3.5-5.5)
[2024-04-22] MEDS ORDERED: Amiodarone HCl 200 MG Tab PO SCH (09:00)
--- NOTE | 2024-04-22 10:38 | NUR ---
am note this rn assumed care at 0700. vital signs stable. tele afib 110s-120s. patient is alert and oriented x4. neuro is intact. patient is able to make needs known and uses call light appropriately. patient is independent in adls once giving supplies. patient denies chest pain/pressure or shortness of breath. patient reports sciatica pain and medicated per emar and upon reasessment reates pain on the numerical pain scale at 3. see shift assessment for further detials. CK in the room and patient received iv amio bolus and then po amio and tolerating well and bp stable at this time. Ekg done this morning and order per md orders for tomorrow morning as well. see orders. md Melara in to see patient and discussed plan of care.
--- NOTE | 2024-04-22 17:54 | NUR ---
shift summary patient neuro remains intact. vital signs remain stable. tele afib 90-100s. no acute changes this shift. see previous note. patient had shower and linen change today.
--- NOTE | 2024-04-22 18:16 | NUR ---
update-rhythm this rn was called by [employer] that told this rn that the patient converted to sinus rhythm at 1352. patient sinus rhythm in the 80s. this rn called md nunez to update
[2024-04-23] MEDS ORDERED: Melatonin 5 MG Tablet PO PRN (00:45)
[2024-04-23 00:59] VITALS: BP 111/53
[2024-04-23 05:00] VITALS: BP 138/71
--- NOTE | 2024-04-23 05:36 | NUR ---
NOC SHIFT SUMMARY SAMEER IS ORIENTED X4, PLEASANT AND COOPERATIVE. ABLE TO MAKE NEEDS KNOWN. CONVERTED TO SR PRIOR TO MY SHIFT AND REMAINED IN SR T/O SHIFT ON TELEMETRY. DISCOMFORT TO BACK CHRONIC TREATED WITH PRN PAIN MEDS WITH RELIEF. EDUCATED ON DEEP BREATHING AND COUGHING. DIFFICULTY SLEEPING, PT REPORTS TAKING MELATONIN 10MG AT HOME. PER RESIDENT DR. GARNETT OK TO RESTART. ORDER PLACED. VSS. DOES COMPLAIN OF DIFFICULTY WITH SWALLOWING, LUNGS COARSE T/O. SATS WNL ON RA BUT SAYS SHE HAS BEEN "CHOKING ON FOOD" NOTIFIED PROVIDER AND ORDER FOR ST EVAL FOR TODAY. PLAN FOR POSSIBLE DC
[2024-04-23 07:41] VITALS: BP 120/55
[2024-04-23 08:42] LABS: BASOPHILS ABSOLUTE AUTO 0.09 K/mm3 (0.00-0.23); BASOPHILS PERCENT AUTO 1 % (0-2); EOSINOPHILS PERCENT AUTO 4 % (0-6); Hematocrit 36.6 % (33.0-51.0); Hemoglobin 12.2 g/dL (11.5-16.0); IMMATURE GRAN ABSOLUTE AUTO 0.16 K/mm3 (0.00-0.10); IMMATURE GRAN PERCENT AUTO 1 % (0-1); LYMPHOCYTES ABSOLUTE AUTO 1.55 K/mm3 (0.84-5.20); LYMPHOCYTES PERCENT AUTO 11 % (21-46); MONOCYTES ABSOLUTE AUTO 1.27 K/mm3 (0.16-1.47); MONOCYTES PERCENT AUTO 9 % (4-13); Mean Corpuscular HGB 30.7 pg (26.0-34.0); Mean Corpuscular HGB Conc 33.3 g/dL (31.5-36.5); Mean Corpuscular Volume 92 fL (80-100); Mean Platelet Volume 9.6 fL (9.1-12.4); NEUTROPHILS PERCENT AUTO 75 % (41-73); Platelet Count 241 K/mm3 (150-400); RDW Coefficient Variation 14.6 % (11.7-14.2); RDW Standard Deviation 48.1 fL (35.1-46.3); Red Blood Cell Count 3.97 M/mm3 (3.80-5.20); White Blood Cell Count 14.57 K/mm3 (4.00-11.30)
[2024-04-23 08:59] LABS: International Normalized Ratio 1.03
[2024-04-23] MEDS ORDERED: Lactobacil 2-S.Thermo-Bifido 1 1 Cap PO SCH (09:00)
[2024-04-23 09:02] LABS: Anti-Xa UFH, PHA Monitoring 1.19 IU/mL
[2024-04-23 09:05] LABS: Albumin, Blood 2.7 g/dL (3.4-5.0); Albumin/Globulin Ratio 0.6 (0.8-1.8); Bilirubin, Total 1.7 mg/dL (0.1-1.0); Bun/Creatinine Ratio 20.1 (12.0-20.0); Calcium, Blood 9.3 mg/dL (8.5-10.1); Creatinine, Blood 0.7 mg/dL (0.40-1.00); Globulin, Blood 4.7 g/dL (2.2-4.0); Potassium, Blood 4.4 mmol/L (3.5-5.5); Total Protein, Blood 7.4 g/dL (6.4-8.2)
[2024-04-23] MEDS ORDERED: Heparin Sodium,Porcine/0.5 NS 500 ML IV SCH (09:10)
[2024-04-23 11:41] VITALS: BP 129/54
--- NOTE | 2024-04-23 14:00 | NUR ---
Spiritual care visit. Pt. is awake and sitting up in a chair when the Pt. welcomed my visit. Pt. is pleasant. Facilitated an update and Pt. verbalized that she had expectations of possible discharge home tomorrow. Listen with empathy and interest and seek to normalize the Pt. experience. Consider matters of handy anf belief. Prayed for the Pt. Pt. verbalized gratitude for the spiritual care visit.
--- NOTE | 2024-04-23 14:53 | NUR ---
THIS RN GAVE REPORT TO MOSHE RN AT 0262. MOSHE TO ASSUME CARE OF PT.
[2024-04-23 15:23] VITALS: BP 130/69
[2024-04-23 16:00] VITALS: BP 140/67
[2024-04-23] MEDS ORDERED: MASOPHEN325 M2 PO (16:50)
[2024-04-23] MEDS ORDERED: Apixaban 5 MG Tab PO SCH (17:00)
[2024-04-23] MEDS ORDERED: AMIODARONE HCL400 M2 PO (17:03)
[2024-04-23] MEDS ORDERED: Amiodarone HCl200 MG PO (17:04)
[2024-04-23] MEDS ORDERED: ELIQUIS5 M2 PO (17:09)
[2024-04-23] MEDS ORDERED: OXAYDO5 M1 PO (17:14)
--- NOTE | 2024-04-23 18:48 | NUR ---
NURSING PCU DISCHARGE SUMMARY: Assumed care of pt at approx 1500. A/O, very pleasant, cooperative w/care. Several family members at bedside and engaged in discussion regarding plan of care. Seen by PMD, IR, and cardiology this afternoon. Decision made to discharge home and follow up with IR and cardiology in office. Pt and family agreeable to plan. Hep gtt dc'd, PIV dc'd w/cath intact. Rx's discussed w/discharging physician to verify updated list. Several calls attempted to [facility] w/no answer. Medication list left in detail via voicemail as well as fax. Pt verbalized understanding of all written and verbal discharge instructions. Eliquis samples provided as well as hard rx, Rx also given for pain medications. Noc medications administered per hospitalist request. No s/s of acute distress at time of discharge. Escorted from unit via w/c accompanied by BEVERAGE STEWARD and family, pt tearful at that time and thanked staff for the care provided.
== END 2024-04-23 18:54 | disposition home or self-care (01) | DRG 981 ==
LOC: MHTC 09:00 → PCU 13:19 → ICUE 13:19 → PCU 04-21 16:39
PROVIDERS: Internal Medicine; Nurse Practitioner Acute Care; Student in an Organized Health Care Education/Training Program; ADMIT Internal Medicine
PROC: 5A1935Z Respiratory Ventilation, Less than 24 Consecutive Hours (ICD-10-PCS; principal; 2024-04-16)
PROC: 0BH17EZ Insertion of Endotracheal Airway into Trachea, Via Natural or Artificial Opening (ICD-10-PCS; 2024-04-16)
PROC: 3E033XZ Introduction of Vasopressor into Peripheral Vein, Percutaneous Approach (ICD-10-PCS; 2024-04-16)
PROC: 0W9D3ZZ Drainage of Pericardial Cavity, Percutaneous Approach (ICD-10-PCS; 2024-04-16)
PROC: 5A02110 Assistance with Cardiac Output using Balloon Pump, Intermittent (ICD-10-PCS; 2024-04-16)
PROC: 02F03ZZ Fragmentation in Coronary Artery, One Artery, Percutaneous Approach (ICD-10-PCS; 2024-04-16)
PROC: 027035Z Dilation of Coronary Artery, One Artery with Two Drug-eluting Intraluminal Devices, Percutaneous Approach (ICD-10-PCS; 2024-04-16)
PROC: 02U03JZ Supplement Coronary Artery, One Artery with Synthetic Substitute, Percutaneous Approach (ICD-10-PCS; 2024-04-16)
PROC: B2111ZZ Fluoroscopy of Multiple Coronary Arteries using Low Osmolar Contrast (ICD-10-PCS; 2024-04-16)
PROC: 4A023N8 Measurement of Cardiac Sampling and Pressure, Bilateral, Percutaneous Approach (ICD-10-PCS; 2024-04-16)
PROC: 02HQ32Z Insertion of Monitoring Device into Right Pulmonary Artery, Percutaneous Approach (ICD-10-PCS; 2024-04-16)
PROC: 4A133B3 Monitoring of Arterial Pressure, Pulmonary, Percutaneous Approach (ICD-10-PCS; 2024-04-16)
PROC: 4A1239Z Monitoring of Cardiac Output, Percutaneous Approach (ICD-10-PCS; 2024-04-16)
PROC: B240ZZ3 Ultrasonography of Single Coronary Artery, Intravascular (ICD-10-PCS; 2024-04-16)
PROC: 5A12012 Performance of Cardiac Output, Single, Manual (ICD-10-PCS; 2024-04-16)
DX: I97.51 Accidental puncture and laceration of a circulatory system organ or structure during a circulatory system procedure (principal); I46.2 Cardiac arrest due to underlying cardiac condition; I49.01 Ventricular fibrillation; J96.01 Acute respiratory failure with hypoxia; R57.0 Cardiogenic shock; J69.0 Pneumonitis due to inhalation of food and vomit; I31.4 Cardiac tamponade; I50.42 Chronic combined systolic (congestive) and diastolic (congestive) heart failure; I47.20 Ventricular tachycardia, unspecified; T82.858A Stenosis of other vascular prosthetic devices, implants and grafts, initial encounter; I31.39 Other pericardial effusion (noninflammatory); I82.622 Acute embolism and thrombosis of deep veins of left upper extremity; I82.612 Acute embolism and thrombosis of superficial veins of left upper extremity; T82.855A Stenosis of coronary artery stent, initial encounter; E87.21 Acute metabolic acidosis; I25.10 Atherosclerotic heart disease of native coronary artery without angina pectoris; I11.0 Hypertensive heart disease with heart failure; E03.9 Hypothyroidism, unspecified; E11.51 Type 2 diabetes mellitus with diabetic peripheral angiopathy without gangrene; K21.9 Gastro-esophageal reflux disease without esophagitis; E78.5 Hyperlipidemia, unspecified; I25.84 Coronary atherosclerosis due to calcified coronary lesion; Y84.0 Cardiac catheterization as the cause of abnormal reaction of the patient, or of later complication, without mention of misadventure at the time of the procedure; I48.91 Unspecified atrial fibrillation; I95.2 Hypotension due to drugs; T44.7X5A Adverse effect of beta-adrenoreceptor antagonists, initial encounter; T46.4X5A Adverse effect of angiotensin-converting-enzyme inhibitors, initial encounter; I25.2 Old myocardial infarction; R94.39 Abnormal result of other cardiovascular function study; Z95.5 Presence of coronary angioplasty implant and graft; Z90.49 Acquired absence of other specified parts of digestive tract; Z87.891 Personal history of nicotine dependence; Z88.8 Allergy status to other drugs, medicaments and biological substances; Z79.4 Long term (current) use of insulin; Z79.82 Long term (current) use of aspirin; Z79.02 Long term (current) use of antithrombotics/antiplatelets; Z79.890 Hormone replacement therapy; Z79.891 Long term (current) use of opiate analgesic; Z79.899 Other long term (current) drug therapy; Z79.84 Long term (current) use of oral hypoglycemic drugs
CPT/HCPCS: 31500; 36415; 51702; 71045; 71275; 76937; 80048; 80053; 82803; 82947; 83605; 83735; 84100; 85007; 85025; 85027; 85347; 85520; 85610; 85730; 92972; 92978; 93005; 93010; 93308; 93321; 93460; 93930; 93971; 94002; 94003; 94660; 94760; 94761; 94762; 97110; 97116; 97162; 97530; 99152; 99153; A9270; C1725; C1729; C1751; C1753; C1761; C1769; C1874; C1887; C1894; C8929; C9600; J0171; J0282; J0295; J0461; J1250; J1265; J1644; J1815; J2250; J2470; J2704; J3010; J3475; J7030; J7040; J7050; J7060; Q9957; Q9967

== ENCOUNTER 2024-04-26 20:16 | Emergency (ER) | payer MEDICARE, BC ==
[~2024-04-26] VITALS: Ht 162.6 cm; Wt 72.6 kg
[~2024-04-26 20:16] MED LIST changes: +AMIODARONE HCL400 M2 PO; +Amiodarone HCl200 MG PO; +CARV6.25 PO; +DOCU100 PO; +ELIQUIS5 M2 PO; +GUAI600T33 PO; -Heparin Sodium 1000 Units/ML 10ML MDV ONE; +MASOPHEN325 M2 PO; +MIRALAX1714 PO; -NS 1,000 ML IV ONE; -NS 250 ML IV ONE; -Nitroglycerin 2 MG/20 ML BTL ONE; +OXAYDO5 M1 PO; +Q-Tussin100 MG/5 M PO; -Verapamil HCL 2.5 MG/ML 2ML Injection ONE
[2024-04-26 22:30] VITALS: BP 110/52
== END 2024-04-26 23:10 | disposition home or self-care (01) ==
LOC: ER 20:16
DX: I82.622 Acute embolism and thrombosis of deep veins of left upper extremity (principal); I10 Essential (primary) hypertension; I25.2 Old myocardial infarction; E11.9 Type 2 diabetes mellitus without complications; E78.5 Hyperlipidemia, unspecified; K21.9 Gastro-esophageal reflux disease without esophagitis; Z88.8 Allergy status to other drugs, medicaments and biological substances; Z79.4 Long term (current) use of insulin; Z79.84 Long term (current) use of oral hypoglycemic drugs; Z79.82 Long term (current) use of aspirin; Z79.899 Other long term (current) drug therapy; Z79.2 Long term (current) use of antibiotics; Z79.01 Long term (current) use of anticoagulants; Z87.891 Personal history of nicotine dependence
CPT/HCPCS: 93931; 93971; 99283-25

== ENCOUNTER 2024-10-18 08:26 | Day surgery (SDC) | payer BC ==
[~2024-10-18] VITALS: Ht 162.6 cm; Wt 82.1 kg
[~2024-10-18 08:26] MED LIST changes: +MELATONIN5 M1 PO; +METO25ER PO; +OXYC5 PO; +Vitamin D1000 UNI1 PO
[2024-10-18] MEDS ORDERED: NS 250 ML IV ONE (09:09)
[2024-10-18] MEDS ORDERED: Heparin Sodium 1000 Units/ML 10ML MDV ONE (09:09)
[2024-10-18] MEDS ORDERED: NS 1,000 ML IV ONE ×2 (09:09→10:11)
[2024-10-18] MEDS ORDERED: NS 100 ML IV ONE (09:10)
[2024-10-18 09:26] VITALS: BP 162/70
[2024-10-18] MEDS ORDERED: FentaNYL Citrate 50 MCG/ML 2 ML Injection ONE (10:11)
[2024-10-18] MEDS ORDERED: Midazolam HCl 1MG / ML 2ML Vial ONE (10:11)
--- NOTE | 2024-10-18 11:15 | NUR ---
Pt returns to laboratory operations coordinator recovery, alert and oriented at this time. VSS upon arrival. Pt supine in bed, Right femoral site has angioseal in place, dressing CDI, No oozing, swelling or bleeding noted. Distal pulses remain unchanged. Pt family to bedside.
[2024-10-18 11:17] VITALS: BP 157/105
[2024-10-18 11:30] VITALS: BP 129/75
--- NOTE | 2024-10-18 11:41 | NUR ---
RIGHT FEMORAL GROIN SITE SOFT NON-TENDER WITH NO HEMATOMA, NO PULSATILE BLEEDING AND INTACT DRESSING. FAMILY MEMBER IN ROOM. CALL LIGHT IN REACH.
[2024-10-18 11:45] VITALS: BP 132/72
[2024-10-18 12:00] VITALS: BP 121/67
--- NOTE | 2024-10-18 12:02 | NUR ---
NO CHANGES TO R FEM GROIN SITE.
--- NOTE | 2024-10-18 12:14 | NUR ---
Pt R groin site remains unchanged from previous assessments. customer data technician to bedside for pt echo that was previously scheduled.
[2024-10-18 12:30] VITALS: BP 120/61
--- NOTE | 2024-10-18 12:39 | NUR ---
echo completed. pt dangeld at bedside site remains unchanged from intial assessment. Pt up to ambulate to the bathroom to void. Back to bed after bathroom, site remains unchanged from intial assessment and WNL. Discharge instructions reviewed with pt and daughter while pt consumes some snacks. Pt. daughter remains at bedside for discharge instructions. IV removed, catheter intact. VSS upon discharege, Taken to exit via wheel chair, pt daughter to drive pt home.
== END 2024-10-18 13:16 | disposition home or self-care (01) ==
LOC: MHTC 08:26
DX: K55.1 Chronic vascular disorders of intestine (principal); I70.208 Unspecified atherosclerosis of native arteries of extremities, other extremity; I87.2 Venous insufficiency (chronic) (peripheral); I83.91 Asymptomatic varicose veins of right lower extremity; E78.2 Mixed hyperlipidemia; I25.10 Atherosclerotic heart disease of native coronary artery without angina pectoris; I10 Essential (primary) hypertension; E11.9 Type 2 diabetes mellitus without complications; E03.9 Hypothyroidism, unspecified; Z95.5 Presence of coronary angioplasty implant and graft; Z87.891 Personal history of nicotine dependence; Z79.4 Long term (current) use of insulin; Z79.01 Long term (current) use of anticoagulants; Z79.890 Hormone replacement therapy; Z79.899 Other long term (current) drug therapy; Z88.8 Allergy status to other drugs, medicaments and biological substances
CPT/HCPCS: 37236; 75726; 75774; 76937; 99152; 99153; C1725; C1760; C1769; C1876; C1887; C1894; J1644; J2250; J3010; J7030; J7050; Q9967